=== PATIENT | male | born 1950 | race Caucasian/White ===

== ENCOUNTER 2020-08-22 05:19 | Observation (INO) ==
--- NOTE | 2020-07-20 15:33 | PAT Medication Instructions ---
Medication Instructions Date of Service July 20, 2020 Home Medications amlodipine [Norvasc] 2.5 mg PO QPM coQ10 (ubiquinol) 200 mg PO HS famotidine [Pepcid] 40 mg PO BID fish oil-dha-epa 1 cap PO BID glucos sul [id number] [Glucosamine Chondroitin] 2 cap PO QAM ibuprofen [Advil] 400 mg PO Q6H PRN lisinopril 40 mg PO HS multivitamin 1 tab PO QAM naproxen sodium [Aleve] 440 mg PO BID PRN pantoprazole [Protonix] 20 mg PO BID rosuvastatin [Crestor] 20 mg PO QPM turmeric root extract 500 mg PO QAM ASK your surgeon for instructions ibuprofen [Advil] 400 mg PO Q6H PRN naproxen sodium [Aleve] 440 mg PO BID PRN STOP taking 2 weeks before surgery (or as soon as possible if surgery is within 2 weeks) coQ10 (ubiquinol) 200 mg PO HS fish oil-dha-epa 1 cap PO BID glucos sul [id number] [Glucosamine Chondroitin] 2 cap PO QAM turmeric root extract 500 mg PO QAM DO NOT take the morning of surgery multivitamin 1 tab PO QAM Take morning of surgery With a small sip of water, OTHERWISE NOTHING TO EAT OR DRINK AFTER MIDNIGHT: famotidine [Pepcid] 40 mg PO BID pantoprazole [Protonix] 20 mg PO BID Take evening before surgery amlodipine [Norvasc] 2.5 mg PO QPM famotidine [Pepcid] 40 mg PO BID lisinopril 40 mg PO HS pantoprazole [Protonix] 20 mg PO BID rosuvastatin [Crestor] 20 mg PO QPM Other Notes If you have any questions please call us at [phone] or [phone] or [phone] or [phone]
--- NOTE | 2020-07-24 09:57 | Anesthesiology Consultation ---
Date of Service July 24, 2020 Assessment & Plan (1) Encounter for pre-operative examination: Chart Review Chart Review: Pending: Refer to Additional Notes / Consult section (pending surgeon ordered PCP clearance (07/20) and preop Covid testing ) and Patient seen in Pre Admission Testing Awaiting surgeon ordered PCP clearance done 07/20/20 Per PAT on 07/24/20, patient resides in [facility] Wears mask, uses good hand hygiene and socially distances. Went to visit son in [place]- returned to [place] 07/11/20. Also traveled to [place]- returned 07/01/20. No known Covid positive contacts or Covid related symptoms. Educated patient to follow up with surgeon's office regarding Covid testing. Will be >2 weeks since travel at time of preop Covid testing and surgery. Educated on importance of self quarantining, social distancing and wearing mask in public both for the patient and household contacts. Teaching & Discussion Pre-Anesthesia Teaching/Discussion Notes: Instructed NPO after midnight before surgery,except medications with 15 cc of water. Medication instructions provided according to the PAT guidelines. History Surgery Operation Date: 08/09/20 07:00 Proposed Procedures p Left Total Knee Arthroplasty - Jose Guillaume MD Height/Weight Height: 5 ft 8 in Weight: 89.5 kg Allergies Allergy/AdvReac Type Severity Reaction Status Date / Time No Known Allergies Allergy Verified 07/14/20 12:14 Medications Home Medications Medication Instructions Recorded Confirmed Last Taken amlodipine [Norvasc] 2.5 mg PO QPM 07/14/20 07/14/20 Unknown coQ10 (ubiquinol) 200 mg PO HS 07/14/20 07/14/20 Unknown famotidine [Pepcid] 40 mg PO BID 07/14/20 07/14/20 Unknown fish oil-dha-epa 1 cap PO BID 07/14/20 07/14/20 Unknown glucos sul [id number] 2 cap PO QAM 07/14/20 07/14/20 Unknown [Glucosamine Chondroitin] ibuprofen [Advil] 400 mg PO Q6H PRN 07/14/20 07/14/20 Unknown lisinopril 40 mg PO HS 07/14/20 07/14/20 Unknown multivitamin 1 tab PO QAM 07/14/20 07/14/20 Unknown naproxen sodium [Aleve] 440 mg PO BID PRN 07/14/20 07/14/20 Unknown pantoprazole [Protonix] 20 mg PO BID 07/14/20 07/14/20 Unknown rosuvastatin [Crestor] 20 mg PO QPM 07/14/20 07/14/20 Unknown turmeric root extract 500 mg PO QAM 07/14/20 07/14/20 Unknown Past Medical History Medical History GERD (gastroesophageal reflux disease) Well controlled and stable with meds Hyperlipidemia Hypertension Exercise / Class Metabolic Activity II 4-5 Yardwork/Stairs/Walk up hill (ONE FLIGHT OF STAIRS - NO CHEST PAIN OR SOB ) Past Surgical History Surgical History H/O hand surgery TRIGGER FINGER History of arthroscopy RIGHT History of cardiac cath 25 YRS AGO-NO BLOCKAGE FOUND-NORMAL VESSELS History of colonoscopy History of esophagogastroduodenoscopy (EGD) History of tonsillectomy Past Anesthesia History No Hx of Anesthesia Complications and No Family Hx of Anesthesia Complications History of PONV No Hx of PONV and No Hx of Motion Sickness Social History Smoking Status: Never smoker Do You Dip or Chew Tobacco: No Hx Alcohol Use: Yes Alcohol type: hard liquor alcohol intake frequency: 0-2 drinks per day (2-3 drinks/day) Hx Substance Use: No Review of Systems Patient denies chest pain, shortness of breath, dyspnea on exertion, cough, wheezing, palpitations. No hx of seizures, stroke, NE, apnea/snoring. No hx of blood clots or blood transfusions Physical Exam Vital Signs VITALS BP 164/72 (usually well controlled per patient) P 51 (chronic bradycardia- no symptoms) TEMP 97.8 SP02 98% RESP 16 Constitutional no acute distress ENMT Mouth: no TMJ clicking Thyromental Distance: > or= 3.5 Finger Breadths (4.0) Mallampati Class: IV Front bottom permanent bridge Cap on molar Neck + limited neck extension (mild ) Respiratory normal respiratory effort; no respiratory distress Auscultation: lungs clear to auscultation bilaterally; no wheezes Cardiovascular Rate/Rhythm: regular rate and regular rhythm Heart Sounds: no murmur Vessels: no carotid bruit Musculoskeletal Spine: no pain with cervical ROM Neurologic moves all extremities Psychiatric Orientation: alert Testing Laboratory Results 07/24/20 10:14 07/24/20 10:14 PT 10.7 Seconds (9.0-12.0) 07/24/20 10:14 INR 1.0 (0.9-1.1) 07/24/20 10:14 APTT 26.2 Seconds (21.0-31.0) 07/24/20 10:14 Urine Color Yellow 07/24/20 10:14 Urine Appearance Clear (Clear) 07/24/20 10:14 Urine pH 5.0 (4.5-7.5) 07/24/20 10:14 Ur Specific [place] 1.011 (1.000-1.030) 07/24/20 10:14 Urine Protein Negative (Negative) 07/24/20 10:14 Urine Glucose (UA) Negative (Negative) 07/24/20 10:14 Urine Ketones Negative (Negative) 07/24/20 10:14 Urine Nitrite Negative (Negative) 07/24/20 10:14 Ur Leukocyte Esterase Negative (Negative) 07/24/20 10:14 Blood Type O Positive 07/24/20 10:14 Antibody Screen NEGATIVE 07/24/20 10:14 Electrocardiogram Date: 07/24/20 Marked sinus bradycardia at 44 bpm. When compared to EKG from Sep 12, 2014- no significant change was found Chest X-Ray Date: 07/24/20 Findings: + NAD There is minimal linear atelectasis/scarring at the right lung base.
--- NOTE | 2020-07-24 10:33 | XRay Report ---
XR chest Pre-admission PA/Lat CLINICAL HISTORY: Preoperative chest COMPARISON STUDY: No previous studies for comparison. FINDINGS: The cardiac and mediastinal contours are normal. There is no evidence of focal pulmonary co nsolidation. There is no evidence of failure. No pleural effusions are visualized.[There is minimal l inear atelectasis/scarring at the right lung base. General changes are present within the dorsal spin e. IMPRESSION: No active disease in the chest. ACT 112: Negative or not required by law. Electronically signed by: Jon Storey M.D. 07/24/2020 10:32 AM
[2020-07-24 10:40] LABS: Basophils # (auto) 0.02 K/uL (0-0.2); Basophils % (auto) 0.4 %; Hematocrit (blood only) 41.2 % (42-52); Hemoglobin 14.2 g/dL (14.0-18.0); Immature Granulocytes # (auto) 0.02 K/uL (0.00-0.02); Immature Granulocytes % (auto) 0.4 %; Lymphocytes # (auto) 1.61 K/uL (1.2-3.4); Lymphocytes % (auto) 32.1 %; Mean Corpuscular Hemoglobin 31.9 pg (25-34); Mean Corpuscular Hgb Conc 34.5 g/dL (32-36); Mean Corpuscular Volume 92.6 fL (80-100); Mean Platelet Volume 11.3 fL (7.4-10.4); Monocytes # (auto) 0.39 K/uL (0.11-0.59); Monocytes % (auto) 7.8 %; Neutrophils # (auto) 2.87 K/uL (1.4-6.5); Neutrophils % (auto) 57.3 %; Platelet Count 159 K/uL (130-400); RDW Coefficient of Variation 12.5 % (11.5-14.5); RDW Standard Deviation 42.1 fL (36.4-46.3); Red Blood Count 4.45 M/uL (4.7-6.1); White Blood Count 5.01 K/uL (4.8-10.8)
[2020-07-24 10:45] LABS: Appearance Urine Clear (Clear); Bilirubin Urine Negative (Negative); Blood Urine Negative (Negative); Color Urine Yellow; Glucose Urine UA Negative (Negative); Ketones Urine Negative (Negative); Leukocyte Esterase Urine Negative (Negative); Nitrite Urine Negative (Negative); Protein Urine Negative (Negative); Specific Gravity Urine 1.011 (1.000-1.030); Urobilinogen Urine Negative (Negative)
[2020-07-24 10:47] LABS: BUN Creatinine Ratio 16.6 (10-20); Calcium 9.2 mg/dl (8.5-10.1); Creatinine Clr Calc Pharmacy 79.2 ml/min; Est GFR (African American) 95.4; Est GFR (Non-African American) 82.3; Potassium 4.3 mmol/L (3.5-5.1)
[2020-07-24 11:01] LABS: Partial Thromboplastin Ratio 0.9; Partial Thromboplastin Time 26.2 Seconds (21.0-31.0); Prothrombin Time 10.7 Seconds (9.0-12.0)
--- NOTE | 2020-07-24 17:06 | Electrocardiogram Report ---
Test Reason : Blood Pressure : / mmHG Vent. Rate : 044 BPM Atrial Rate : 044 BPM P-R Int : 192 ms QRS Dur : 092 ms QT Int : 440 ms P-R-T Axes : 059 062 031 degrees QTc Int : 376 ms Marked sinus bradycardia Abnormal ECG When compared with ECG of 12-SEP-2014 12:28, No significant change was found Confirmed by Sergei Elam ([id number]) on 07/24/2020 5:06:00 PM Referred By: Jose Guillaume Confirmed By:Timbo Elam
--- NOTE | 2020-07-25 12:13 | History & Physical Report ---
Date of Service July 25, 2020 Assessment & Plan (1) Left knee DJD: Postoperative prescriptions for Coumadin and Percocet will be provided at discharge from the hospital. Anticipate discharge to home with home health services. Preoperative lab work, EKG, and chest x-ray were ordered today. Preoperative COVID nasal screening was also ordered today. PDMP was virtual check and is not concerning. The patient already has access to a walker and cane. He has already seen his PCP for medical clearance. The patient is aware of the COVID-19 risks associated with surgery. He is currently asymptomatic of any COVID-19 symptoms. He has already quarantined himself since returning from [place]. Postoperative followup has already been made for August 24 for staple removal. History of Present Illness Chief Complaint: Left knee pain Primary Care Provider: Eliazar Ham This 70-year-old white male presents today for left knee pain present since January 2020. He is scheduled to undergo a left knee total knee arthroplasty on 08/09/2020. No specific injury that he can recall. Pain is worse with weightbearing. He is having difficulty with walking. There is night pain. He has difficulty finding a comfortable position to sleep. There is little pain with sitting. He has tried NSAIDs as well as cortisone injection without impro vement. X-ray and MRI have been obtained. He elects to proceed with surgical intervention in hopes of improving his discomfort. Allergies Allergy/AdvReac Type Severity Reaction Status Date / Time No Known Allergies Allergy Verified 07/14/20 12:14 Home Medications Home Medications Medication Instructions Recorded Confirmed Type amlodipine [Norvasc] 2.5 mg PO QPM 07/14/20 07/14/20 History coQ10 (ubiquinol) 200 mg PO HS 07/14/20 07/14/20 History famotidine [Pepcid] 40 mg PO BID 07/14/20 07/14/20 History fish oil-dha-epa 1 cap PO BID 07/14/20 07/14/20 History glucos sul [id number]-C-Mn 2 cap PO QAM 07/14/20 07/14/20 History [Glucosamine Chondroitin] ibuprofen [Advil] 400 mg PO Q6H PRN 07/14/20 07/14/20 History lisinopril 40 mg PO HS 07/14/20 07/14/20 History multivitamin 1 tab PO QAM 07/14/20 07/14/20 History naproxen sodium [Aleve] 440 mg PO BID PRN 07/14/20 07/14/20 History pantoprazole [Protonix] 20 mg PO BID 07/14/20 07/14/20 History rosuvastatin [Crestor] 20 mg PO QPM 07/14/20 07/14/20 History turmeric root extract 500 mg PO QAM 07/14/20 07/14/20 History Past Med/Surg History Medical History GERD (gastroesophageal reflux disease) Well controlled and stable with meds Hyperlipidemia Hypertension Surgical History H/O hand surgery TRIGGER FINGER History of arthroscopy RIGHT History of cardiac cath 25 YRS AGO-NO BLOCKAGE FOUND-NORMAL VESSELS History of colonoscopy History of esophagogastroduodenoscopy (EGD) History of tonsillectomy Family History Other Alzheimer disease COPD (chronic obstructive pulmonary disease) Heart disease Obesity Social History Smoking Status: Never smoker Second Hand Exposure: Yes (FATHER SMOKED); Do You Dip or Chew Tobacco: No; Hx Alcohol Use: Yes Alcohol type: hard liquor Hx Substance Use: No Preferred Language: Moldovan Communication Ability: Effective Hearing Ability: Normal Personal Care Aid Required: No Beliefs That Will Affect Care: None marital status: Current Living Situation: Spouse current occupational status: retired Other Information That Helps Us Care for You: No Feels Safe at Home: Yes Safety Concerns: Feels Safe At This Time Assistive Devices: Contacts and Glasses Assistive Devices Comment: WILL WEAR GLASSES Review of Systems Review of Systems: All systems reviewed & are unremarkable except as noted in HPI & below A total of 10 systems were reviewed. Physical Exam Physical Exam: Vitals: Height 173 cm, weight 88.9 kg, BMI 29.7, temperature 36.4 oral, BP 142/62, pulse 58, O2 sat 98% on room air. General: Well- developed, well-nourished, elderly white male in no acute distress. Sitting on a chair. Alert and oriented. Looks younger than his stated age. Skin: Warm and dry with good turgor. No rashes or lesions. No ecchymosis or erythema. No intraarticular effusion. HEENT: Normocephalic, atraumatic. Eyes: PERRLA, EOMI. Nares and oropharynx exams deferred due to COVID precautions. Heart: Bradycardic RRR, no MGR. Lungs: Clear to auscultation bilaterally, no crackles, rhonchi or wheezing, good air movement. Abdomen: Bowel sounds present x4, soft, nontender. No organomegaly. No masses. Musculoskeletal: Left knee evaluation reveals no intraarticular effusion. No redness or warmth. Full terminal extension. Flexion to greater than 110 degrees. Strength is 5/5 with good quad tone. He has no current medial or lateral joint line discomfort with palpation. No defect in the patellar tendon or quadriceps tendon. Ambulates with a slightly antalgic gait. Stable collateral ligaments. Neurologic: Gross sensation is intact across left leg by soft touch. Peripheral pulses are 2+. Results & Data Results & Data ([facility]) Diagnostic Findings Radiographic imaging previously obtained shows significant degenerative disease within the medial compartment. He has subchondral fracture with osteochondritis dissecans.
[~2020-08-22 05:19] MED LIST: LR 500ML BOLUS, THEN 15ML/HR IV SCH; LR 60ML/HR IV SCH; ROPIVACAINE 0.5% HCL/PF 150 MG, BUPIVACAINE 0.5% MPF 30 ML, EPINEPHrine 0.15 MG, Ketoro... INFIL SCH; TRANEXAMIC ACID 1,000 MG **IV Pre-op IV SCH; ceFAZolin 2000MG 2,000 MG/15 ML SYR IV SCH
[2020-08-22] MEDS ORDERED: LR 60ML/HR IV SCH (06:00)
[2020-08-22] MEDS ORDERED: LR 500ML BOLUS, THEN 15ML/HR IV SCH (06:00)
[2020-08-22] MEDS ORDERED: ceFAZolin 2000MG 2,000 MG/15 ML SYR IV SCH (06:00)
[2020-08-22] MEDS ORDERED: ROPIVACAINE 0.5% HCL/PF 150 MG, BUPIVACAINE 0.5% MPF 30 ML, EPINEPHrine 0.15 MG, Ketoro... INFIL SCH (06:00)
[2020-08-22] MEDS ORDERED: TRANEXAMIC ACID 1,000 MG **IV Pre-op IV SCH (06:00)
--- NOTE | 2020-08-22 06:28 | History & Physical Bridge Note ---
Date of Service August 22, 2020 History & Physical Bridge Note I have examined the patient, reviewed the History & Physical and in the interval since the performance of the History & Physical I have noted the following changes of clinical significance: consent verified/site verified/covid screen negative.no changes noted
[2020-08-22] MEDS ORDERED: ROPIVACAINE 0.5% 5 MG/ML 30 ML VIAL ONE (06:30)
[2020-08-22] MEDS ORDERED: BUPIVACAINE 0.5 % 5 MG/1 ML PF 10ML VIAL ONE (06:30)
[2020-08-22] MEDS ORDERED: ORTHO JOINT ANESTHETIC ONE (06:35)
[2020-08-22] MEDS ORDERED: PROPOFOL IV EMULSION 10 MG/ML 20 ML VIAL IV ONE ×2 (06:38→08:18)
[2020-08-22] MEDS ORDERED: LIDOCAINE HCL 2% 2 ML VIAL/AMP(20MG/ML) INFIL ONE (06:38)
[2020-08-22] MEDS ORDERED: MIDAZOLAM HCL 1 MG/ML 2ML VIAL ONE ×2 (06:39→07:29)
[2020-08-22] MEDS ORDERED: fentaNYL citrate 100 MCG/2 ML VIAL ONE (06:39)
[2020-08-22] MEDS ORDERED: ePHEDrine sulfate 50 MG/ML AMP IV PRN (07:00)
[2020-08-22] MEDS ORDERED: HYDROmorphone INJ 1 MG/ML SYRINGE IV PRN (07:00)
[2020-08-22] MEDS ORDERED: ONDANSETRON INJ 2 MG/ML 2 ML VIAL IV PRN ×2 (07:00→09:44)
[2020-08-22] MEDS ORDERED: ATROPINE SULFATE 0.1 MG/ML 10ML SYR IV PRN (07:00)
[2020-08-22] MEDS ORDERED: GLYCOPYRROLATE 0.2 MG/ML VIAL ONE (08:10)
--- NOTE | 2020-08-22 08:33 | Post Operative Brief Note ---
Immediate Post Op Note v1 Date of Surgery August 22, 2020 Pre & Post Diagnosis Operation Date: 08/22/20 07:00 Pre-Op Diagnosis: Left Knee Degenerative Joint Disease Post-Op Diagnosis: Left Knee Degenerative Joint Disease I identified the patient and participated in the time-out.: Yes Procedure Operation Date: 08/22/20 07:00 Actual Procedures p Left Total Knee Arthroplasty(Left) - Jose Guillaume MD Surgeon Jose Guillaume MD [facility] Estimated Blood Loss 25 Findings Consistent with Post-Op Diagnosis
--- NOTE | 2020-08-22 08:41 | Operative Report ---
Post Operative Report Pre & Post Diagnosis Operation Date: 08/22/20 07:00 Pre-Op Diagnosis: Left Knee Degenerative Joint Disease Post-Op Diagnosis: Left Knee Degenerative Joint Disease I identified the patient and participated in the time-out.: Yes Procedure Operation Date: 08/22/20 07:00 Actual Procedures p Left Total Knee Arthroplasty(Left) - Jose Guillaume MD Surgeon BE Guillaume MD Diversity Manager zoe Estimated Blood Loss 25 Findings Consistent with Post-Op Diagnosis Specimens see operative report Drains none Complications none Disposition Accompanied Patient To Recovery: Yes Disposition: Recovery Room Indications This 70-year-old white male presented to the office with complaints of persisting left knee pain. He had tried conservative care measures including activity modification, injection therapy, oral anti-inflammatories, and oral pain medication, without improvement. He elected to proceed with surgical intervention after being educated about potential risks and outcomes. Preoperative imaging was obtained. Description of Procedure Patient was administered a spinal anesthetic and then taken to the operating room where he was given sedation. He was prepped and draped in the usual sterile fashion. Please see Dr. Guillaume's operative report for specifics of the procedure. I was present for the entire case from initial patient positioning through final wound closure. Assistance was provided in tissue retraction, hemostasis, trial implant placement, final implant placement, and final wound closure. Patient was taken to the recovery room in satisfactory condition. I attest to the content of the Intraoperative Record and any orders documented therein. Any exceptions are noted below.
[2020-08-22] MEDS ORDERED: ePHEDrine sulfate 50 MG/ML SYR ONE (08:46)
--- NOTE | 2020-08-22 09:08 | XRay Report ---
LEFT KNEE 2 VIEWS History: Left total knee arthroplasty. Degenerative arthritis. Postop. FINDINGS: The patient is status post a left total knee arthroplasty. The hardware is intact. No fract ure or dislocation. Skin ghada are in place. IMPRESSION: Left total knee arthroplasty. No evidence for hardware complication. ACT 112: Negative or not required by law. Electronically signed by: Brett Hewitt M.D. 08/22/2020 9:07 AM
--- NOTE | 2020-08-22 09:13 | Operative Report (OR) ---
DATE OF OPERATION: 08/22/2020 SURGEON: Jose Guillaume MD. MEMBER SERVICES COORDINATOR: Carlos Willis PA-C. No resident or fellow available. 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 OPERATION PERFORMED: cemented left total knee replacement. PERIOPERATIVE SITUATION: Medically cleared male with intractable knee pain with physical exam, x-ray and MRI scan consistent with a very large osteonecrotic lesion with osteochondritis dissecans and secondary degenerative disease of medial compartment with disease degenerative of the trochlea of the left knee. At this point in time, options were discussed with him. He has failed conservative management and wanted to proceed with knee replacement. He understands the risks and consequences. Please see consent. DESCRIPTION OF PROCEDURE: The patient was appropriately identified, site verified, consent verified. Antibiotics confirmed as being given. The left lower extremity was prepped and draped in usual routine fashion and the tourniquet inflated to 300 mmHg after exsanguination of limb with a rubber Esmarch bandage for a total of 51 minutes. Midline exposure was utilized. Parapatellar arthrotomy performed. Synovectomy completed. Osteophytes resected. The knee flexed. Large lesions noted medially. Large lesion noted in the central trochlea. Distal femur then entered. Cruciates resected. Distal femur resected 12 mm, tibia subluxated, menisci resected. Proximal tibia resected 4 mm, the extension gap was excellent. Tibia was a size 4, femur was sized to a 4; with appropriate cutting block, anterior and posterior condylar and chamfer cuts made and the flexion gap checked, it was excellent. The box cut was then made and the size 4 fit well. The tibia was then broached and reamed to a size 4, 10 mm spacer offered excellent stability, full extension and good mid range stability. Patella tracked well. The patella was resected leaving 16 mm, 38 button trial was then seated and secured and then it fit and tracked well. The Orthomix was then injected all around the knee including posteriorly. The wound was then irrigated after all trial implants were removed with Betadine and Pulsavac and then the permanent cemented in position, tibia, femur, patella in that order. At 12 minutes, the tourniquet deflated. After 14 minutes, the knee flexed, no cement removal was required. Knee irrigated one final time and then the permanent liner seated, knee reduced and closed at 30-40 degrees of flexion with #2 Vicryl, 2-0 Vicryl and stainless steel clips. Appropriate dressing applied. The patient was transferred to recovery room in satisfactory condition having tolerated the procedure well. ESTIMATED BLOOD LOSS: 25 mL. Bone pathology pending on resections and DVT prophylaxis per protocol. I attest to the content of the Intraoperative Record and any orders documented therein. Any exceptions are noted below. MTDD
[2020-08-22] MEDS ORDERED: MAGNESIUM HYDROXIDE SUSP 30 ML UDC PO PRN (09:44)
[2020-08-22] MEDS ORDERED: NALOXONE HCL 0.4 MG/1 ML VIAL/CARP IV PRN (09:44)
[2020-08-22] MEDS ORDERED: TAMSULOSIN HCL 0.4 MG CAP PO PRN (09:44)
[2020-08-22] MEDS ORDERED: ALUMINUM/MAGNESIUM SUSP 30 ML UDC PO PRN (09:44)
[2020-08-22] MEDS ORDERED: HYDROmorphone INJ 0.5 MG/0.5 ML SYR IV PRN (09:44)
[2020-08-22] MEDS ORDERED: bisacodyL 10 MG SUPP PR PRN (09:44)
[2020-08-22] MEDS ORDERED: METOCLOPRAMIDE HCL INJ 5 MG/ML 2 ML VIAL IV PRN (09:44)
[2020-08-22] MEDS ORDERED: diphenhydrAMINE 50 MG/ML VIAL IV PRN (09:44)
[2020-08-22] MEDS ORDERED: SODIUM CHLORIDE 0.9% 1000ML 1,000 ML IV SCH (10:00)
[2020-08-22] MEDS: DOCUSATE SODIUM 100 MG CAP PO SCH ×2 (10:25→21:32)
[2020-08-22] MEDS: MULTIVITAMIN TAB PO SCH (10:25)
[2020-08-22] MEDS: PANTOprazole 40 MG TAB PO SCH ×2 (10:26→21:32)
[2020-08-22] MEDS: KETOROLAC 30 MG/ML VIAL IV SCH ×3 (10:26→22:41)
--- NOTE | 2020-08-22 10:48 | Anesthesiology Progress Note ---
Date of Service August 22, 2020 Anesthesia Post Procedure Vital Signs Vital Signs: Temp Pulse Pulse Resp BP BP Pulse Ox 08/22/20 10:45 36.6 C 52 L 16 154/74 H 95 08/22/20 10:14 36.6 C 52 L 16 147/64 H 97 08/22/20 09:47 36.8 C 57 L 17 147/66 H 97 08/22/20 09:30 53 L 18 142/63 H 96 08/22/20 09:20 36.4 C L 47 L 20 137/59 L 93 08/22/20 09:10 50 L 20 143/86 H 96 08/22/20 09:00 50 L 16 136/60 95 08/22/20 08:50 52 L 18 134/62 94 08/22/20 08:41 36.4 C L 63 20 123/73 94 08/22/20 06:28 51 L 20 164/77 H 98 08/22/20 05:51 36.4 C L 53 L 16 171/71 H 99 Pain Intensity Left Knee: Pain Intensity: 0 Transfer of Care Handoff Completed per policy Notes Mental Status: alert / awake / arousable Patient Amnestic to Procedure: Yes Nausea / Vomiting: adequately controlled Pain: adequately controlled Airway Patency, RR, SpO2: stable & adequate BP & HR: stable & adequate Hydration State: stable & adequate Neuraxial Anesthesia: was administered and sensory block is resolving Anesthetic Complications: no major complications apparent
--- NOTE | 2020-08-22 11:22 | Progress Notes ---
DATE: 08/22/2020 SUBJECTIVE: Status post left total knee replacement. The patient is doing well, ate well. Denies nausea, vomiting, chest pain, shortness of breath, fever or chills. OBJECTIVE: Vital signs are stable. He is afebrile. Postop x-rays look excellent. Wound dressing clean, dry and intact. The block is starting to wear off. He is getting some toe and ankle extension and flexion. Some slight quad contraction. ASSESSMENT: Doing well status post left total knee replacement. Mobilize when he wakes up from his spinal anesthesia, weakness in his legs and prepare for discharge tomorrow. Again postop x-rays. DICTATION ENDS HERE
--- NOTE | 2020-08-22 13:06 | Discharge Summary (DS) ---
DATE OF DISCHARGE: 08/23/2020. CHIEF COMPLAINT: Left knee pain. HISTORY OF PRESENT ILLNESS: Underwent elective left total knee replacement. Hospital course has been uneventful to date. Postop x-rays look excellent. PREADMISSION DIAGNOSES: Includes hypertension, gastroesophageal reflux disease, hypercholesterolemia, arthritis. PREADMISSION MEDICATIONS: Please see medication reconciliation sheet includes benazepril, pantoprazole, Crestor, amlodipine. PAST MEDICAL/SURGICAL HISTORY: As noted above including a trigger finger, colonoscopies, tonsillectomy. FAMILY HISTORY: Remarkable for COPD, heart disease, obesity and Alzheimer's disease. SOCIAL HISTORY: Reveals he does not smoke. He is retired, . REVIEW OF SYSTEMS: Reveals no chest pain, shortness of breath, fever, chills, nausea, vomiting or headache. Postop x-rays look excellent. ASSESSMENT: Doing well status post left total knee replacement. Continue with postop care pathway. Discharge tomorrow.
[2020-08-22] MEDS: ORTHO WARFARIN NOMOGRAM SCH (14:14)
[2020-08-22] MEDS: ceFAZolin 2000MG 2,000 MG/15 ML SYR IV SCH ×2 (14:23→22:41)
[2020-08-22] MEDS: ACETAMINOPHEN 500 MG TAB PO SCH ×2 (14:23→22:40)
[2020-08-22] MEDS ORDERED: TRANEXAMIC ACID / 0.7% NACL 1,000 MG/100 ML BAG IV SCH (15:00)
[2020-08-22] MEDS ORDERED: WARFARIN SOD 5 MG TAB PO ONE (16:00)
[2020-08-22] MEDS: FERROUS GLUCONATE 324 MG TAB PO SCH (17:35)
[2020-08-22] MEDS: ASCORBIC ACID 500 MG TAB PO SCH (17:35)
[2020-08-22] MEDS: oxyCODONE HCL IR 5 MG TAB (IMMEDIATE RELEASE) PO PRN ×2 (19:41→23:51)
[2020-08-22] MEDS ORDERED: SENNA 8.6 MG TAB PO SCH (21:00)
[2020-08-22] MEDS ORDERED: amLODIPine BESYLATE 5 MG TAB PO SCH (21:00)
[2020-08-22] MEDS ORDERED: ROSUVASTATIN CALCIUM 20 MG TAB PO SCH (21:00)
[2020-08-22] MEDS ORDERED: lisinopril 40 MG TAB PO SCH (21:00)
[2020-08-23] MEDS: KETOROLAC 30 MG/ML VIAL IV SCH (04:16)
[2020-08-23] MEDS: ACETAMINOPHEN 500 MG TAB PO SCH (06:07)
[2020-08-23] MEDS: oxyCODONE HCL IR 5 MG TAB (IMMEDIATE RELEASE) PO PRN ×2 (06:08→11:25)
[2020-08-23 06:38] LABS: Hematocrit (blood only) 32.1 % (42-52); Mean Corpuscular Hemoglobin 31.7 pg (25-34); Mean Corpuscular Hgb Conc 34.3 g/dL (32-36); Mean Corpuscular Volume 92.5 fL (80-100); Mean Platelet Volume 11.3 fL (7.4-10.4); Platelet Count 158 K/uL (130-400); RDW Coefficient of Variation 12.7 % (11.5-14.5); RDW Standard Deviation 43.1 fL (36.4-46.3); Red Blood Count 3.47 M/uL (4.7-6.1); White Blood Count 8.81 K/uL (4.8-10.8)
[2020-08-23 06:41] LABS: Prothrombin Time 10.9 Seconds (9.0-12.0)
[2020-08-23 07:09] LABS: Creatinine Clr Calc Pharmacy 78.9 ml/min; Est GFR (African American) 95.4; Est GFR (Non-African American) 82.3; Potassium 4.1 mmol/L (3.5-5.1)
[2020-08-23] MEDS: MULTIVITAMIN TAB PO SCH (07:32)
[2020-08-23] MEDS: FERROUS GLUCONATE 324 MG TAB PO SCH (07:32)
[2020-08-23] MEDS: ASCORBIC ACID 500 MG TAB PO SCH (07:32)
[2020-08-23] MEDS: DOCUSATE SODIUM 100 MG CAP PO SCH (07:32)
[2020-08-23] MEDS: PANTOprazole 40 MG TAB PO SCH (07:32)
[2020-08-23] MEDS ORDERED: dexAMETHasone 10 MG in SYRINGE 0 ML IV SCH (08:00)
--- NOTE | 2020-08-23 08:07 | Progress Notes ---
DATE: 08/23/2020 SUBJECTIVE Postop day #1 status post left total knee replacement. The patient is sitting up, reading, has no issues with pain. Denies chest pain, shortness of breath, fever, chills, nausea, vomiting or headache. OBJECTIVE: Vital signs are stable. He is afebrile. Wound is clean, dry and intact. Femoral sciatic nerve function is normal. Calves nontender A.m. labs are pending. ASSESSMENT: Doing well. Discharge to home today. Coumadin dose per nomogram. Dressing change prior to. DICTATION ENDS HERE
--- NOTE | 2020-08-23 09:27 | Orthopedic Progress Note ---
Date of Service August 23, 2020 Assessment & Plan (1) Left knee DJD: POD 1- Left total knee arthroplasty May be OOB - WBAT LLE; use walker to assist with ambulation PT/OT today continue regular diet as ordered Coumadin as instructed for DVT prophylaxis. Ice PRN swelling/pain Dressings changed today Will discuss findings with Dr. Guillaume. Pain medication as prescribed. All questions answered Follow up as out patient as scheduled Will discuss findings with Dr. Guillaume. Admission and Anticipated Discharge Date Admission Date: August 22, 2020 Subjective Doing well, no complaints of pain. Tolerating regular diet. Seen by Dr. Guillaume earlier today. Physical Exam Physical Exam: Incision left knee clean, dry and intact. No effusion. No active drainage. Dressings applied. Calf supple and nontender. Distal pulses 1+, sensation normal. Able to actively SLR LLE. No distal edema. Results & Data ([facility]) Vital Signs (Past 12 Hours) Vital Signs Temp Pulse Resp BP Pulse Ox 08/23/20 07:37 36.9 C 51 L 16 126/66 97 08/23/20 04:18 36.8 C 55 L 15 113/61 99 08/22/20 23:55 36.3 C L 50 L 16 158/83 H 96 08/22/20 21:33 36.4 C L 53 L 16 131/63 96 Laboratory Results 08/23/20 08/23/20 08/23/20 Range/Units 06:20 06:20 06:20 WBC 8.81 (4.8-10.8) K/uL RBC 3.47 L (4.7-6.1) M/uL Hgb 11.0 L (14.0-18.0) g/dL Hct 32.1 L (42-52) % MCV 92.5 (80-100) fL MCH 31.7 (25-34) pg MCHC 34.3 (32-36) g/dL RDW Std Deviation 43.1 (36.4-46.3) fL RDW Coeff of Aj 12.7 (11.5-14.5) % Plt Count 158 (130-400) K/uL MPV 11.3 H (7.4-10.4) fL PT 10.9 (9.0-12.0) Seconds INR 1.0 (0.9-1.1) Sodium 137 (136-145) mmol/L Potassium 4.1 (3.5-5.1) mmol/L Chloride 107 (98-107) mmol/L Carbon Dioxide 25 (21-32) mmol/L Anion Gap 5.0 (3-11) BUN 21 H (7-18) mg/dl Creatinine 0.93 (0.6-1.4) mg/dl Est Cr Clr Drug Dosing 78.9 ml/min Est GFR ( Amer) 95.4 Est GFR (Non-Af Amer) 82.3 BUN/Creatinine Ratio 22.0 H (10-20) Glucose 129 H (70-99) mg/dl Calcium 8.0 L (8.5-10.1) mg/dl
[2020-08-23] MEDS: ORTHO WARFARIN NOMOGRAM SCH (11:33)
[2020-08-23] MEDS ORDERED: WARFARIN SOD 5 MG TAB PO SCH (11:45)
== END 2020-08-23 12:45 | disposition home health service (06) ==
LOC: 3E 05:19 → ASU 05:19

== ENCOUNTER 2024-06-18 09:58 | Observation (INO) ==
[2024-06-18] MEDS: SODIUM CHLORIDE 0.9% 500 ML IV ONE (10:29)
[2024-06-18 10:39] LABS: Basophils # (auto) 0.03 K/uL (0.00-0.20); Basophils % (auto) 0.6 %; Eosinophils # (auto) 0.08 K/uL (0.00-0.50); Eosinophils % (auto) 1.7 %; Hematocrit (blood only) 38.5 % (42.0-52.0); Hemoglobin 13.7 g/dl (14.0-18.0); Immature Granulocytes # (auto) 0.01 K/uL (0.01-0.20); Immature Granulocytes % (auto) 0.2 %; Lymphocytes # (auto) 0.85 K/uL (1.20-3.40); Lymphocytes % (auto) 17.6 %; Mean Corpuscular Hemoglobin 32.2 pg (25.0-34.0); Mean Corpuscular Hgb Conc 35.6 g/dL (32.0-36.0); Mean Corpuscular Volume 90.4 fL (80.0-100.0); Mean Platelet Volume 11.7 fL (9.4-12.4); Monocytes # (auto) 0.53 K/uL (0.11-0.59); Neutrophils # (auto) 3.34 K/uL (1.40-6.50); Neutrophils % (auto) 68.9 %; Platelet Count 157 K/uL (130-400); RDW Coefficient of Variation 12.6 % (11.5-14.5); RDW Standard Deviation 41.2 fL (36.4-46.3); Red Blood Count 4.26 M/uL (4.70-6.10); White Blood Count 4.84 K/ul (4.8-10.8)
[2024-06-18 10:57] LABS: Albumin Level 4.7 gm/dl (3.4-5.0); BUN Creatinine Ratio 23.3 (10-20); Bilirubin,Total 0.9 mg/dl (0.2-1.0); Calcium 9.4 mg/dl (8.6-10.3); Creatinine Clr Calc Pharmacy 69.7 ml/min; Est GFR (African American) 97.2 ml/min; Est GFR (Non-African American) 83.8 ml/min; Globulin 2.3 gm/dl (2.5-4.0); Magnesium 2.2 mg/dl (1.7-2.4); Phosphorus 3.4 mg/dl (2.5-4.9); Potassium 4.4 mmol/L (3.5-5.1)
--- NOTE | 2024-06-18 11:02 | XRay Report ---
XR chest 1V portable CLINICAL HISTORY: Chest pain, nonspecific COMPARISON STUDY: Chest radiograph July 30, 2021. Chest CT October 05, 2021. FINDINGS: Lung volumes are normal. Lungs are clear. There is no pneumothorax or pleural effusion. Car diac size is normal. Mediastinal contours are normal. There is no evidence for pulmonary edema. IMPRESSION: No acute cardiopulmonary findings. ACT 112: Negative or not required by law. Electronically signed by: Julio Walters M.D. 06/18/2024 11:00 AM
[2024-06-18 11:03] LABS: Troponin I High Sensitivity 7.4 pg/ml (0-20)
[2024-06-18 11:11] LABS: Thyroid Stimulating Hormone 2.628 uIu/ml (0.300-4.500)
--- NOTE | 2024-06-18 11:31 | Emergency Department Note ---
Impression & Plan Pre-syncope, Sinus bradycardia, First degree AV block ED Provider Note NAME: KEELEY ANDINO AGE: 73 SEX: M : 1950 ARRIVES VIA: Walk-In INFORMANT: Patient ED PROVIDER(S): Salbador Giron MD CHIEF COMPLAINT: Slow heart rate, dizziness, syncope. PLAN: Disposition: Admit MEDICAL DECISION MAKING: The patient is a pleasant 73-year-old gentleman with a past medical history of hypertension, GERD who presents to the emergency department via walk-in, accompanied by his for evaluation of ongoing fatigue and frequent episodes of dizziness and imbalance that fluctuate which became worse over the past 2 weeks. Patient reports 2 nights ago he got up to take out their dog and passed out after standing up falling into their glass door cracking the glass and suffering minor cuts to his scalp where he reports going to express care and had the lacerations repaired with adhesive. However, the patient reports today due to concern that his symptoms are worsening and correlates them with his heart rate which has been known to be low in the 40s-50s for years but without symptoms and now is concerned that his heart rate trend has gone even lower to the 30s-40s on his smart watch and feels as though his symptoms may correlate. He denies any fevers, chills, cough congestion, GI or symptoms. Of note, the patient did arrive to emergency department during time of high volume, acuity and prolonged emergency department waiting times. On evaluation the patient is no acute distress, afebrile with heart in the upper 30s-40s and sinus bradycardia without high-grade AV block. Vital signs are otherwise stable. Heart rate does increase from supine to sitting. EKG demonstrates sinus bradycardia without overt acute ischemia. CXR negative for acute cardiopulmonary process per my personal preliminary review/interpretation. WBC and platelet within normal limits. H/H approximate department values. Chemistry without metabolic acidosis. BUN/creatinine is 23, consistent with patient's clinically dry appearance. LFTs are unremarkable. High styptic troponin is 7.4, within normal limits. Lipase is not elevated. TSH within normal limits. Lyme screen was negative. CT of the head and CT of the head neck were performed were negative for ICH, ischemia or severe narrowing occlusion of large vessels. Findings were reviewed with the patient and his at the bedside. They did agree with plan for admission for further evaluation and management. Case was discussed with Dr. Galvan [facility] hospitalist, who will evaluate the patient for admission. Further management per admitting team. Triage Nursing notes reviewed and agree them. Prior/external medical records reviewed Vital Signs: reviewed Differential diagnosis: Vasovagal event, dehydration, infection, hypoglycemia, electrolyte abnormalities, cardiac sources, intracerebral event, pulmonary embolism, seizure, toxicologic, neurologic, as well as other pathologies. ER treatment provided: See below. Diagnostics interpreted by me: ECG: Sinus bradycardia, 40 bpm, no ectopy, first-degree block, LVH, no overt ST elevation or depression, QTc 381, QTc 96., Similar to July 2021. Cardiac Monitoring: An order for continuous cardiac monitoring was placed and demonstrated Sinus bradycardia, 40 bpm, no ectopy. Laboratory studies: See below Imaging studies: See below Consultation(s): Case was discussed with Dr. Galvan, [facility] [place] [facility] hospitalist, who will evaluate the patient for admission. HPI: The patient is a pleasant 73-year-old gentleman with a past medical history of hypertension, GERD who presents to the emergency department via walk-in, accompanied by his for evaluation of ongoing fatigue and frequent episodes of dizziness and imbalance that fluctuate which became worse over the past 2 weeks. Patient reports 2 nights ago he got up to take out their dog and passed out after standing up falling into their glass door cracking the glass and suffering minor cuts to his scalp where he reports going to express care and had the lacerations repaired with adhesive. However, the patient reports today due to concern that his symptoms are worsening and correlates them with his heart rate which has been known to be low in the 40s-50s for years but without symptoms and now is concerned that his heart rate trend has gone even lower to the 30s-40s on his smart watch and feels as though his symptoms may correlate. He denies any fevers, chills, cough congestion, GI or symptoms. ROS: See above HPI for pertinent positives & negatives. A total of 10 systems reviewed and were otherwise negative. VITALS:See Below PHYSICAL EXAMINATION: GENERAL: Awake, alert, well-appearing, in no distress HENT: Normocephalic, atraumatic. Oropharynx with dry mucous membranes and otherwise unremarkable. . EYES: Normal conjunctiva. Sclera non-icteric. EOMI. No nystamgus. PEARRL. NECK: Supple. No nuchal rigidity. FROM. No JVD. RESPIRATORY: Clear to auscultation. CARDIAC: Bradycardic rate, normal rhythm. Extremities warm and well perfused. Pulses equal. ABDOMEN: Soft, non-distended. No tenderness to palpation. No rebound or guarding. No masses. MUSCULOSKELETAL: Chest examination reveals no tenderness. The back is symmetrical on inspection without obvious abnormality. There is no CVA tenderness to palpation. No joint edema. LOWER EXTREMITIES: Calves are equal size bilaterally and non-tender. No edema. No discoloration. NEURO: Normal sensorium. No sensory or motor deficits noted. 5/5 strength and SILT x 4 extremities. Cerebellar function intact including [id number], alternating palms, [id number]. SKIN: No rash or jaundice noted. Salbador Giron MD Past Med/Surg History Problem List (Updated 06/20/24 @ 19:38 by Salbador Giron MD) First degree AV block (Acute) Scalp laceration Ascending aortic aneurysm Symptomatic sinus bradycardia Sinus bradycardia (Acute) Pre-syncope (Acute) Right knee DJD Encounter for pre-operative examination Laceration of thumb (Acute) Left knee DJD Medical History Abdominal aortic aneurysm Depression Osteoarthritis GERD (gastroesophageal reflux disease) Hypertension Hyperlipidemia Surgical History History of total knee replacement H/O hand surgery History of arthroscopy History of tonsillectomy History of esophagogastroduodenoscopy (EGD) History of colonoscopy History of cardiac cath Family History Other Alzheimer disease COPD (chronic obstructive pulmonary disease) Heart disease Obesity Social History Smoking Status: Never smoker Second Hand Exposure: Yes ( A CHILD); Do You Dip or Chew Tobacco: No; Hx Alcohol Use: Yes Alcohol type: hard liquor Hx Substance Use: No Preferred Language: Yemeni Communication Ability: Effective Hearing Ability: Normal [employer] Required: No Beliefs That Will Affect Care: None marital status: Current Living Situation: Spouse current occupational status: retired Feels Safe at Home: Yes Safety Concerns: Feels Safe At This Time Assistive Devices: Glasses Allergies Allergies Allergy/AdvReac Type Severity Reaction Status Date / Time No Known Allergies Allergy Verified 06/17/24 11:34 Home Meds Home Medications Medication Instructions Recorded Confirmed amlodipine 2.5 mg tablet (Norvasc) 5 mg PO QPM 07/14/20 06/18/24 famotidine 40 mg tablet (Pepcid) 40 mg PO BID 07/14/20 06/18/24 lisinopril 40 mg tablet 20 mg PO HS 07/14/20 06/18/24 multivitamin 1 tab PO QAM 07/14/20 06/18/24 pantoprazole 20 mg tablet,delayed 20 mg PO QAM 07/14/20 06/18/24 release (Protonix) rosuvastatin 20 mg tablet (Crestor) 40 mg PO QPM 07/14/20 06/18/24 ascorbic acid (vitamin C) 1,000 mg 1 g PO HS 07/23/21 06/18/24 tablet (Vitamin C) cholecalciferol (vitamin D3) 125 125 mcg PO QAM 07/23/21 06/18/24 mcg (5,000 unit) tablet (Vitamin D3) coQ10 (ubiquinol) 200 mg capsule 200 mg PO QPM 07/23/21 06/18/24 vitamin B complex 1 cap PO QAM 07/23/21 06/18/24 zinc 50 mg tablet 50 mg PO QAM 07/23/21 06/18/24 aspirin 81 mg tablet,delayed 81 mg PO QAM 06/17/24 06/18/24 release (Adult Aspirin Regimen) Previous Rx's Medication Instructions Recorded amoxicillin 875 mg-potassium 1 tab PO BID 5 days #10 tabs 06/17/24 clavulanate 125 mg tablet Results & Data (ED) Vital Signs Vital Signs - 24 hr 06/18/24 10:02 06/18/24 10:25 06/18/24 10:25 Temperature 36.0 C L Temperature Source Temporal Artery Scan Pulse Rate 45 L Pulse Rate [Left Finger] Pulse Rate from SpO2 Sensor Pulse Rhythm [Left Finger] Pulse Strength [Left Finger] Respiratory Rate 20 Respiratory Effort / Characteristics Non-Labored Spontaneous Respiratory Depth Normal Respiratory Pattern Blood Pressure 144/75 H Blood Pressure [Right Arm] Blood Pressure Mean 98 Blood Pressure Mean [Right Arm] Blood Pressure Position [Right Arm] Pulse Oximetry 98 97 Oxygen Delivery Method Room Air Room Air Room Air Oxygen Flow Rate 0 Sepsis Recent Fever Within 48 Hours No Sepsis New/Unexplained Change in Mental Status N/A Sepsis Action Taken by Nursing No Action Required Oxygen Flow Rate - Titration 97 06/18/24 10:27 06/18/24 10:27 06/18/24 10:30 Temperature Temperature Source Pulse Rate 39 L 40 L Pulse Rate [Left Finger] Pulse Rate from SpO2 Sensor 40 L Pulse Rhythm [Left Finger] Pulse Strength [Left Finger] Respiratory Rate 15 Respiratory Effort / Characteristics Respiratory Depth Respiratory Pattern Blood Pressure 136/64 Blood Pressure [Right Arm] Blood Pressure Mean 84 Blood Pressure Mean [Right Arm] Blood Pressure Position [Right Arm] Pulse Oximetry 97 Oxygen Delivery Method Oxygen Flow Rate Sepsis Recent Fever Within 48 Hours Sepsis New/Unexplained Change in Mental Status Sepsis Action Taken by Nursing Oxygen Flow Rate - Titration 06/18/24 10:30 06/18/24 10:30 06/18/24 10:45 Temperature Temperature Source Pulse Rate 40 L Pulse Rate [Left Finger] Pulse Rate from SpO2 Sensor 40 L Pulse Rhythm [Left Finger] Pulse Strength [Left Finger] Respiratory Rate 16 Respiratory Effort / Characteristics Respiratory Depth Respiratory Pattern Blood Pressure 136/64 133/68 Blood Pressure [Right Arm] Blood Pressure Mean 84 112 Blood Pressure Mean [Right Arm] Blood Pressure Position [Right Arm] Pulse Oximetry 96 Oxygen Delivery Method Oxygen Flow Rate Sepsis Recent Fever Within 48 Hours Sepsis New/Unexplained Change in Mental Status Sepsis Action Taken by Nursing Oxygen Flow Rate - Titration 06/18/24 10:45 06/18/24 10:45 06/18/24 10:45 Temperature Temperature Source Pulse Rate 43 L Pulse Rate [Left Finger] Pulse Rate from SpO2 Sensor 44 L Pulse Rhythm [Left Finger] Pulse Strength [Left Finger] Respiratory Rate 14 Respiratory Effort / Characteristics Respiratory Depth Respiratory Pattern Blood Pressure 133/68 133/68 Blood Pressure [Right Arm] Blood Pressure Mean 112 112 Blood Pressure Mean [Right Arm] Blood Pressure Position [Right Arm] Pulse Oximetry 97 Oxygen Delivery Method Oxygen Flow Rate Sepsis Recent Fever Within 48 Hours Sepsis New/Unexplained Change in Mental Status Sepsis Action Taken by Nursing Oxygen Flow Rate - Titration 06/18/24 11:00 06/18/24 11:03 06/18/24 11:06 Temperature Temperature Source Pulse Rate 47 L 43 L Pulse Rate [Left Finger] Pulse Rate from SpO2 Sensor 43 L Pulse Rhythm [Left Finger] Pulse Strength [Left Finger] Respiratory Rate 15 23 Respiratory Effort / Characteristics Respiratory Depth Respiratory Pattern Blood Pressure 146/69 H Blood Pressure [Right Arm] Blood Pressure Mean 97 Blood Pressure Mean [Right Arm] Blood Pressure Position [Right Arm] Pulse Oximetry 98 Oxygen Delivery Method Oxygen Flow Rate Sepsis Recent Fever Within 48 Hours Sepsis New/Unexplained Change in Mental Status Sepsis Action Taken by Nursing Oxygen Flow Rate - Titration 06/18/24 11:30 06/18/24 11:57 06/18/24 11:58 Temperature Temperature Source Pulse Rate 80 49 L Pulse Rate [Left Finger] Pulse Rate from SpO2 Sensor Pulse Rhythm [Left Finger] Pulse Strength [Left Finger] Respiratory Rate 16 16 Respiratory Effort / Characteristics Respiratory Depth Respiratory Pattern Blood Pressure 140/71 Blood Pressure [Right Arm] Blood Pressure Mean 99 Blood Pressure Mean [Right Arm] Blood Pressure Position [Right Arm] Pulse Oximetry Oxygen Delivery Method Oxygen Flow Rate Sepsis Recent Fever Within 48 Hours Sepsis New/Unexplained Change in Mental Status Sepsis Action Taken by Nursing Oxygen Flow Rate - Titration 06/18/24 11:58 06/18/24 12:02 06/18/24 12:02 Temperature Temperature Source Pulse Rate Pulse Rate [Left Finger] Pulse Rate from SpO2 Sensor Pulse Rhythm [Left Finger] Pulse Strength [Left Finger] Respiratory Rate Respiratory Effort / Characteristics Respiratory Depth Respiratory Pattern Blood Pressure 140/71 143/89 H 143/89 H Blood Pressure [Right Arm] Blood Pressure Mean 99 121 121 Blood Pressure Mean [Right Arm] Blood Pressure Position [Right Arm] Pulse Oximetry Oxygen Delivery Method Oxygen Flow Rate Sepsis Recent Fever Within 48 Hours Sepsis New/Unexplained Change in Mental Status Sepsis Action Taken by Nursing Oxygen Flow Rate - Titration 06/18/24 12:03 06/18/24 12:04 06/18/24 12:30 Temperature Temperature Source Pulse Rate 45 L 42 L Pulse Rate [Left Finger] 45 L Pulse Rate from SpO2 Sensor 44 L 42 L Pulse Rhythm [Left Finger] Regular Pulse Strength [Left Finger] Normal Respiratory Rate 17 20 16 Respiratory Effort / Characteristics Non-Labored Spontaneous Respiratory Depth Normal Respiratory Pattern Regular Blood Pressure 134/69 Blood Pressure [Right Arm] 143/89 H Blood Pressure Mean 90 Blood Pressure Mean [Right Arm] 107 Blood Pressure Position [Right Arm] Sitting Pulse Oximetry 99 98 98 Oxygen Delivery Method Room Air Oxygen Flow Rate Sepsis Recent Fever Within 48 Hours Sepsis New/Unexplained Change in Mental Status Sepsis Action Taken by Nursing Oxygen Flow Rate - Titration 06/18/24 13:06 06/18/24 13:30 06/18/24 14:00 Temperature Temperature Source Pulse Rate 41 L 41 L 45 L Pulse Rate [Left Finger] Pulse Rate from SpO2 Sensor 42 L Pulse Rhythm [Left Finger] Pulse Strength [Left Finger] Respiratory Rate 15 18 18 Respiratory Effort / Characteristics Respiratory Depth Respiratory Pattern Blood Pressure 118/67 134/67 125/62 Blood Pressure [Right Arm] Blood Pressure Mean 84 90 98 Blood Pressure Mean [Right Arm] Blood Pressure Position [Right Arm] Pulse Oximetry 97 96 98 Oxygen Delivery Method Oxygen Flow Rate Sepsis Recent Fever Within 48 Hours Sepsis New/Unexplained Change in Mental Status Sepsis Action Taken by Nursing Oxygen Flow Rate - Titration 06/18/24 14:25 06/18/24 14:33 06/18/24 15:39 Temperature Temperature Source Pulse Rate 36 L 42 L 41 L Pulse Rate [Left Finger] Pulse Rate from SpO2 Sensor 42 L 42 L Pulse Rhythm [Left Finger] Pulse Strength [Left Finger] Respiratory Rate 14 15 Respiratory Effort / Characteristics Respiratory Depth Respiratory Pattern Blood Pressure 127/68 Blood Pressure [Right Arm] Blood Pressure Mean 87 Blood Pressure Mean [Right Arm] Blood Pressure Position [Right Arm] Pulse Oximetry 96 98 Oxygen Delivery Method Oxygen Flow Rate Sepsis Recent Fever Within 48 Hours Sepsis New/Unexplained Change in Mental Status Sepsis Action Taken by Nursing Oxygen Flow Rate - Titration 06/18/24 16:15 Temperature Temperature Source Pulse Rate 54 L Pulse Rate [Left Finger] Pulse Rate from SpO2 Sensor 45 L Pulse Rhythm [Left Finger] Pulse Strength [Left Finger] Respiratory Rate 15 Respiratory Effort / Characteristics Respiratory Depth Respiratory Pattern Blood Pressure Blood Pressure [Right Arm] Blood Pressure Mean Blood Pressure Mean [Right Arm] Blood Pressure Position [Right Arm] Pulse Oximetry 96 Oxygen Delivery Method Oxygen Flow Rate Sepsis Recent Fever Within 48 Hours Sepsis New/Unexplained Change in Mental Status Sepsis Action Taken by Nursing Oxygen Flow Rate - Titration Laboratory Data Attestation: I reviewed the patient's lab results. 06/20/24 06:16 06/20/24 06:16 Lab Results 06/18/24 Range/Units 10:20 WBC 4.84 (4.8-10.8) K/ul RBC 4.26 L (4.70-6.10) M/uL Hgb 13.7 L (14.0-18.0) g/dl Hct 38.5 L (42.0-52.0) % MCV 90.4 (80.0-100.0) fL MCH 32.2 (25.0-34.0) pg MCHC 35.6 (32.0-36.0) g/dL RDW Std Deviation 41.2 (36.4-46.3) fL RDW Coeff of Aj 12.6 (11.5-14.5) % Plt Count 157 (130-400) K/uL MPV 11.7 (9.4-12.4) fL Immature Gran % (Auto) 0.2 % Neut % (Auto) 68.9 % Lymph % (Auto) 17.6 % Johnston % (Auto) 11.0 % Eos % (Auto) 1.7 % Baso % (Auto) 0.6 % Neut # (Auto) 3.34 (1.40-6.50) K/uL Lymph # (Auto) 0.85 L (1.20-3.40) K/uL Johnston # (Auto) 0.53 (0.11-0.59) K/uL Eos # (Auto) 0.08 (0.00-0.50) K/uL Baso # (Auto) 0.03 (0.00-0.20) K/uL Immature Gran # (Auto) 0.01 (0.01-0.20) K/uL Sodium 136 (136-145) mmol/L Potassium 4.4 (3.5-5.1) mmol/L Chloride 102 (98-107) mmol/L Carbon Dioxide 29 (21-32) mmol/L Anion Gap 5 (3-11) BUN 21 (6-23) mg/dl Creatinine 0.90 (0.6-1.4) mg/dl Est Cr Clr Drug Dosing 69.7 ml/min Est GFR ( Amer) 97.2 ml/min Est GFR (Non-Af Amer) 83.8 ml/min BUN/Creatinine Ratio 23.3 H (10-20) Glucose 123 H (70-99(Fasting)) mg/dl Calcium 9.4 (8.6-10.3) mg/dl Phosphorus 3.4 (2.5-4.9) mg/dl Magnesium 2.2 (1.7-2.4) mg/dl Total Bilirubin 0.9 (0.2-1.0) mg/dl AST 29 (13-39) U/L ALT 34 (7-52) U/L Alkaline Phosphatase 52 (34-104) U/L Troponin I High Sens 7.4 (0-20) pg/ml Total Protein 7.0 (6.0-8.3) gm/dl Albumin 4.7 (3.4-5.0) gm/dl Globulin 2.3 L (2.5-4.0) gm/dl Albumin/Globulin Ratio 2.0 (0.9-2) Lipase 24 (11-82) U/L TSH 2.628 (0.300-4.500) uIu/ml Lyme Disease Screen Negative (Negative) Administered Medications Amlodipine Besylate (Amlodipine Besylate 5 Mg Tab) 5 mg PO QPM [facility] Stop: 07/18/24 20:59 Last Admin: 06/19/24 20:31 Dose: 5 mg Documented By: Admin: 06/18/24 20:40 Dose: 5 mg Documented By: ELIAZAR Amoxicillin/Clavulanate Potassium (Amoxicillin/Clavulanate 875 Mg Tab) 1 tab PO BID [facility]; Protocol Stop: 06/25/24 20:59 Last Admin: 06/20/24 08:37 Dose: 1 tab Documented By: Admin: 06/19/24 20:31 Dose: 1 tab Documented By: Admin: 06/19/24 09:00 Dose: 1 tab Documented By: Admin: 06/18/24 20:38 Dose: 1 tab Documented By: ELIAZAR Aspirin (Aspirin 81 Mg Ectab) 81 mg PO QAM [facility] Stop: 07/19/24 08:59 Last Admin: 06/20/24 08:38 Dose: 81 mg Documented By: Admin: 06/19/24 09:00 Dose: 81 mg Documented By: AML Enoxaparin Sodium (Enoxaparin Inj 40 Mg/0.4 Ml Syr) 40 mg SQ Q24H [facility] Stop: 07/18/24 20:59 Last Admin: 06/19/24 20:29 Dose: Not Given Documented By: Admin: 06/18/24 20:37 Dose: Not Given Documented By: ELIAZAR Famotidine (Famotidine 40 Mg Tablet) 40 mg PO BID [facility] Stop: 07/18/24 20:59 Last Admin: 06/20/24 08:38 Dose: 40 mg Documented By: Admin: 08/31/24 20:30 Dose: 40 mg Documented By: Admin: 06/19/24 09:00 Dose: 40 mg Documented By: Admin: 06/18/24 20:38 Dose: 40 mg Documented By: ELIAZAR Lisinopril (Lisinopril 20 Mg Tab) 20 mg PO [facility] Stop: 07/18/24 20:59 Last Admin: 06/19/24 20:30 Dose: 20 mg Documented By: Admin: 06/18/24 20:38 Dose: 20 mg Documented By: ELIAZAR Multivitamins (Multivitamin Tab) 1 tab PO QAM [facility] Stop: 07/19/24 08:59 Last Admin: 06/20/24 08:38 Dose: 1 tab Documented By: Admin: 06/19/24 09:01 Dose: 1 tab Documented By: MIKE Pantoprazole Sodium (Pantoprazole 40 Mg Tab) [facility] [place] [facility] [place]: 07/19/24 08:59 Last Admin: 06/20/24 08:38 Dose: 40 mg Documented By: Admin: 06/19/24 09:01 Dose: 40 mg Documented By: MIKE Polyethylene Glycol (Polyethylene (Miralax) 17 Gm Pack) 17 gm PO DAILY PRN PRN Reason: Constipation Stop: 07/19/24 20:13 Last Admin: 06/19/24 20:30 Dose: 17 gm Documented By: STEPHANIA Rosuvastatin Calcium (Rosuvastatin Calcium 20 Mg Tab) 40 mg PO QPM [facility] Stop: 07/18/24 20:59 Last Admin: 06/19/24 20:30 Dose: 40 mg Documented By: Admin: 06/18/24 20:37 Dose: 40 mg Documented By: ELIAZAR Vitamin B Complex (Vitamin B Complex Tab) 1 tab PO QAM [facility] Stop: 07/19/24 08:59 Last Admin: 06/20/24 08:39 Dose: 1 tab Documented By: Admin: 06/19/24 09:01 Dose: 1 tab Documented By: MIKE Vitamin D (Cholecalciferol 125 Mcg (5,000 Units) Tab) 125 mcg PO QAM [facility] Stop: 07/19/24 08:59 Last Admin: 06/20/24 08:38 Dose: 125 mcg Documented By: Admin: 06/19/24 09:00 Dose: 125 mcg Documented By: AML Zinc Sulfate (Zinc Sulfate 220 Mg Capsule) 220 mg PO QAM [place] Stop: 07/19/24 08:59 Last Admin: 06/20/24 08:39 Dose: 220 mg Documented By: Admin: 06/19/24 09:01 Dose: 220 mg Documented By: AML Discontinued Medications Sodium Chloride (Nss) 500 mls @ 999 mls/hr IV .Q31M ONE Stop: 06/18/24 10:47 Last Infusion: 06/18/24 11:03 Dose: Infused Documented By: AML(2) Admin: 06/18/24 10:29 Dose: 999 mls/hr Documented By: AML(2) Ioversol (Optiray 320 125ml) 120 ml IV ONCE ONE Stop: 06/18/24 11:38 Last Admin: 06/18/24 11:37 Dose: 120 ml Documented By: EDK Imaging Data Radiologist's Impression: Chest X-Ray 06/18/24 10:17 XR chest 1V portable CLINICAL HISTORY: Chest pain, nonspecific COMPARISON STUDY: Chest radiograph July 30, 2021. Chest CT October 05, 2021. FINDINGS: Lung volumes are normal. Lungs are clear. There is no pneumothorax or pleural effusion. Cardiac size is normal. Mediastinal contours are normal. There is no evidence for pulmonary edema. IMPRESSION: No acute cardiopulmonary findings. ACT 112: Negative or not required by law. Electronically signed by: Julio Walters M.D. 06/18/2024 11:[address] 06/18/24 11:23 CT SCAN OF THE BRAIN WITHOUT IV CONTRAST CLINICAL HISTORY: Syncope. Loss of balance. COMPARISON STUDY: No priors. TECHNIQUE: Unenhanced axial CT scan of the brain is performed from the vertex to the skull base. A dose lowering technique was utilized adhering to the principles of ALARA. FINDINGS: Brain parenchyma: There is age-related involutional change noting minimal microangiopathic disease. There is no hemorrhage, mass effect, or evidence of acute territorial ischemia by CT criteria. Hernández-white matter differentiation is preserved. No extra-axial fluid collection is seen. Ventricles, sulci, cisterns: Prominent secondary to involutional change. Intracranial vasculature: There is atherosclerotic calcification of the cavernous carotid arteries. Calvarium: Unremarkable. Sinuses and mastoids: The visualized paranasal sinuses are clear. The mastoid air cells are well pneumatized. Orbits: The bony orbits are grossly intact. IMPRESSION: There is no hemorrhage, mass effect, or evidence of acute territorial ischemia by CT criteria. ACT 112: Negative or not required by law. Electronically signed by: Reji Delgado M.D. 06/18/2024 12:04 PM Head CTA 06/18/24 11:23 CTA ANGIOGRAPHY OF THE HEAD CLINICAL HISTORY: off balance, syncope COMPARISON STUDY: No previous studies for comparison. TECHNIQUE: Helical axial images of the head were obtained following uneventful intravenous administration of 120 cc of Optiray. Sagittal and coronal reconstructions were viewed as well as maximal intensity projections on an independent 3-D workstation. Automated exposure control was utilized for the study. A dose lowering technique was utilized adhering to the principles of ALARA. FINDINGS: No acute intracranial hemorrhage, midline shift or mass effect is present. Brain volume is normal. Ventricular system is normal. Basal cisterns are patent. There are no extra-axial collections. The bilateral M1, M2, A1 and A2 segments are patent. Posterior circulation is intact. There is no intracranial aneurysm. IMPRESSION: No large vessel occlusion. No intracranial aneurysm. Unremarkable CTA of the head. ACT 112: Negative or not required by law. Electronically signed by: Julio Walters M.D. 06/18/2024 12:00 PM Neck CTA 06/18/24 11:23 NECK CTA HISTORY: off balance, syncope TECHNIQUE: Multiaxial CT images of the neck were performed following the intravenous administration of contrast to evaluate the major cervical vessels. 3D/MIP images were also obtained. Sagittal and coronal reformats were reviewed. All measurements were calculated based on NASCET criteria. A dose lowering technique was utilized adhering to the principles of ALARA. COMPARISON STUDY: None. FINDINGS: The aortic arch and proximal great vessels are widely patent. There is no significant stenosis, occlusion, or dissection identified within the bilateral common carotid, internal carotid, or vertebral arteries. Mild calcified plaque within the bilateral carotid bifurcations. IMPRESSION: No significant stenosis, occlusion, or dissection identified within the carotid or vertebral arteries. ACT 112: Negative or not required by law. Electronically signed by: Brett Hewitt M.D. 06/18/2024 12:27 PM Discharge Plan Visit Data Chief Complaint: Cardiac Assessment Stated Complaint: HEART ISSUES, LOW HR, DIZZINESS, REF BY DOC ED Provider: Salbador Giron Discharge Problem: Pre-syncope, Sinus bradycardia, First degree AV block Patient Disposition: Admitted As Inpatient Discharge Instructions Interventions: ED Discharge Assessment Last Done: 06/18/24 19:38
[2024-06-18] MEDS: OPTIRAY 320 125ml IV ONE (11:37)
--- NOTE | 2024-06-18 12:01 | CT Scan Report ---
CTA ANGIOGRAPHY OF THE HEAD CLINICAL HISTORY: off balance, syncope COMPARISON STUDY: No previous studies for comparison. TECHNIQUE: Helical axial images of the head were obtained following uneventful intravenous administr ation of 120 cc of Optiray. Sagittal and coronal reconstructions were viewed as well as maximal inten sity projections on an independent 3-D workstation. Automated exposure control was utilized for the study. A dose lowering technique was utilized adhering to the principles of ALARA. FINDINGS: No acute intracranial hemorrhage, midline shift or mass effect is present. Brain volume is normal. Ventricular system is normal. Basal cisterns are patent. There are no extra-axial collections . The bilateral M1, M2, A1 and A2 segments are patent. Posterior circulation is intact. There is no i ntracranial aneurysm. IMPRESSION: No large vessel occlusion. No intracranial aneurysm. Unremarkable CTA of the head. ACT 112: Negative or not required by law. Electronically signed by: Julio Walters M.D. 06/18/2024 12:00 PM
--- NOTE | 2024-06-18 12:05 | CT Scan Report ---
CT SCAN OF THE BRAIN WITHOUT IV CONTRAST CLINICAL HISTORY: Syncope. Loss of balance. COMPARISON STUDY: No priors. TECHNIQUE: Unenhanced axial CT scan of the brain is performed from the vertex to the skull base. A do se lowering technique was utilized adhering to the principles of ALARA. FINDINGS: Brain parenchyma: There is age-related involutional change noting minimal microangiopathic disease. T here is no hemorrhage, mass effect, or evidence of acute territorial ischemia by CT criteria. Hernández-wh ite matter differentiation is preserved. No extra-axial fluid collection is seen. Ventricles, sulci, cisterns: Prominent secondary to involutional change. Intracranial vasculature: There is atherosclerotic calcification of the cavernous carotid arteries. Calvarium: Unremarkable. Sinuses and mastoids: The visualized paranasal sinuses are clear. The mastoid air cells are well pneu matized. Orbits: The bony orbits are grossly intact. IMPRESSION: There is no hemorrhage, mass effect, or evidence of acute territorial ischemia by CT anne randall. ACT 112: Negative or not required by law. Electronically signed by: Reji Delgado M.D. 06/18/2024 12:04 PM
--- NOTE | 2024-06-18 12:28 | CT Scan Report ---
NECK CTA HISTORY: off balance, syncope TECHNIQUE: Multiaxial CT images of the neck were performed following the intravenous administration o f contrast to evaluate the major cervical vessels. 3D/MIP images were also obtained. Sagittal and cor onal reformats were reviewed. All measurements were calculated based on NASCET criteria. A dose low ering technique was utilized adhering to the principles of ALARA. COMPARISON STUDY: None. FINDINGS: The aortic arch and proximal great vessels are widely patent. There is no significant sten osis, occlusion, or dissection identified within the bilateral common carotid, internal carotid, or v ertebral arteries. Mild calcified plaque within the bilateral carotid bifurcations. IMPRESSION: No significant stenosis, occlusion, or dissection identified within the carotid or vertebral arteries . ACT 112: Negative or not required by law. Electronically signed by: Brett Hewitt M.D. 06/18/2024 12:27 PM
--- NOTE | 2024-06-18 15:31 | History & Physical Report ---
Date of Service June 18, 2024 Assessment & Plan (1) Pre-syncope: Plan: ? Symptomatic bradycardia Discussed with patient's [facility] siding installer Dr. Blair. Unfortunately cannot get a event monitor this evening and going into the holiday weekend. Will admit the patient overnight to watch for any episodes symptomatic bradycardia or pauses that would necessitate a pacemaker. If no events are seen overnight patient feels well can be discharged tomorrow and will be set up with a follow-up appointment and an event monitor for this coming week. Admitted to telemetry Optimize potassium 4.0, magnesium 2.0, at goal at time of admission Patient is not on beta-blockers or AV charles agents on admit Troponin is normal, no chest pain at any point Wound from prior fall is well-approximated with Dermabond. Augmentin continued for ppx. Did get tetanus booster - past hx 1x suspected A-fib. reported on Apple Watch. Follow-up event monitor did not show any episodes of A-fib. No recurrent A-fib, no documented A-fib. (2) Hypertension: (3) Hyperlipidemia: Plan Chronic stable issues Ascending aortic dilation: Next ultrasound scheduled in September. Avoid tobacco products. Avoid fluoroquinolones. No acute change in management. 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 Daily BMP, if elevated can add SSI. Prophylaxis: Lovenox Disposition: Telemetry CODE STATUS: Full code Diet: Regular, if any cardiac events or heart pauses make n.p.o. for possible pacemaker placement History of Present Illness Primary Care Provider: Eliazar Trevizo is a 73-year-old male with past medical history of GERD, hyperlipidemia, hypertension, bradycardia, asthma, MDD, elevated PSA, ascending aortic dilation who presents with recurrent presyncope and bradycardia Santhosh seen at the bedside with his present. He reports he has a longstanding history of bradycardia without syncope, presyncope, or hypotension. He did have a 30-day monitor in the past for a single episode of suspected A- fib noted on Apple Watch however 30-day monitor did not show any documented A- fib per patient. He reports that in the last month, and especially in the last 2 weeks has had progressive presyncope and lightheadedness which does not always correlate with standing up. His episodes have occurred while walking and exerting himself, and had 1 episode with standing. This past week he did get up at night to walk his dog briefly had some lightheadedness dizziness and then syncopized, falling into a window. Saw urgent care for this on 06/17, did have a tetanus shot updated and was placed on prophylactic Augmentin for 1 week. Lacerations were closed with Dermabond at that visit. She presented today for evaluation of continued presyncope He denies chest pain or chest pressure at any point. No fevers chills or sweats. No recent illnesses. No rashes Lyme is negative He does not take any beta-blockers or AV charles agents. He does have a trend on his Apple Watch which shows variability, and has noted high heart rate variability which has correlated with the symptoms although this does not necessarily report the rate at the same time. Overall his rate appears to have down trended and is often in the high 30s/low 40s. Discussed with patient's [facility] siding installer Dr. Blair. Unfortunately cannot get a event monitor this evening and going into the holiday weekend. Will admit the patient overnight to watch for any episodes symptomatic bradycardia or pauses that would necessitate a pacemaker. If no events are seen overnight patient feels well can be discharged tomorrow and will be set up with a follow-up appointment and an event monitor for this coming week. Allergies Allergy/AdvReac Type Severity Reaction Status Date / Time No Known Allergies Allergy Verified 06/17/24 11:34 Home Medications Medication Instructions Recorded Confirmed Type amlodipine 2.5 mg tablet (Norvasc) 5 mg PO QPM 07/14/20 06/18/24 History famotidine 40 mg tablet (Pepcid) 40 mg PO BID 07/14/20 06/18/24 History lisinopril 40 mg tablet 20 mg PO HS 07/14/20 06/18/24 History multivitamin 1 tab PO QAM 07/14/20 06/18/24 History pantoprazole 20 mg tablet,delayed 20 mg PO QAM 07/14/20 06/18/24 History release (Protonix) rosuvastatin 20 mg tablet (Crestor) 40 mg PO QPM 07/14/20 06/18/24 History ascorbic acid (vitamin C) 1,000 mg 1 g PO HS 07/23/21 06/18/24 History tablet (Vitamin C) cholecalciferol (vitamin D3) 125 125 mcg PO QAM 07/23/21 06/18/24 History mcg (5,000 unit) tablet (Vitamin D3) coQ10 (ubiquinol) 200 mg capsule 200 mg PO QPM 07/23/21 06/18/24 History vitamin B complex 1 cap PO QAM 07/23/21 06/18/24 History zinc 50 mg tablet 50 mg PO QAM 07/23/21 06/18/24 History amoxicillin 875 mg-potassium 1 tab PO BID 5 days #10 tabs 06/17/24 06/18/24 Rx clavulanate 125 mg tablet aspirin 81 mg tablet,delayed 81 mg PO QAM 06/17/24 06/18/24 History release (Adult Aspirin Regimen) Past Med/Surg History Problem List (Updated 06/18/24 @ 17:53 by Salbador Giron MD) Sinus bradycardia (Acute) Pre-syncope (Acute) Right knee DJD Encounter for pre-operative examination Laceration of thumb (Acute) Left knee DJD Medical History Abdominal aortic aneurysm Depression Osteoarthritis GERD (gastroesophageal reflux disease) Hypertension Hyperlipidemia Surgical History History of total knee replacement H/O hand surgery History of arthroscopy History of tonsillectomy History of esophagogastroduodenoscopy (EGD) History of colonoscopy History of cardiac cath Family History Other Alzheimer disease COPD (chronic obstructive pulmonary disease) Heart disease Obesity Social History Smoking Status: Never smoker Second Hand Exposure: Yes ( A CHILD); Do You Dip or Chew Tobacco: No; Hx Alcohol Use: Yes Alcohol type: beer, wine and hard liquor Hx Substance Use: No Preferred Language: Tajik Communication Ability: Effective Hearing Ability: Normal Prototyper Required: No Beliefs That Will Affect Care: None marital status: Current Living Situation: Spouse current occupational status: retired Feels Safe at Home: Yes Assistive Devices: Contacts and Glasses Physical Exam Physical Exam: General: A&Ox3. NAD. Cooperative. HEENT: 1x forehead lac, +L posterior scalp lacs well approximated w/ dermabond and no warmth/erythema/active bleeding Pulm: CTAB A&P. -wheezes, -rales, -rhonchi. Symmetrical chest rise. No increased work of breathing. No respiratory distress. Cardiac: regular, bradycardic, -mrg. Radial pulses intact and symmetrical. Abdominal: Nontender, nondistended, soft. BS present. Results & Data Results & Data Vital Signs (Past 12 Hours) Vital Signs Temp Pulse Pulse Resp BP BP Pulse Ox 06/18/24 14:33 42 L 14 127/68 96 06/18/24 14:25 36 L 06/18/24 14:00 45 L 18 125/62 98 06/18/24 13:30 41 L 18 134/67 96 06/18/24 13:06 41 L 15 118/67 97 06/18/24 12:30 42 L 16 134/69 98 06/18/24 12:04 45 L 20 143/89 H 98 06/18/24 12:03 45 L 17 99 06/18/24 12:02 143/89 H 06/18/24 12:02 143/89 H 06/18/24 11:58 140/71 06/18/24 11:58 140/71 06/18/24 11:57 49 L 16 06/18/24 11:30 80 16 06/18/24 11:06 146/69 H 06/18/24 11:03 43 L 23 98 06/18/24 11:00 47 L 15 06/18/24 10:45 43 L 14 97 06/18/24 10:45 133/68 06/18/24 10:45 133/68 06/18/24 10:45 133/68 06/18/24 10:30 40 L 16 96 06/18/24 10:30 136/64 06/18/24 10:30 136/64 06/18/24 10:27 40 L 15 97 06/18/24 10:27 39 L 06/18/24 10:25 97 06/18/24 10:25 06/18/24 10:02 36.0 C L 45 L 20 144/75 H 98 O2 Del Method O2 Flow Rate 06/18/24 14:33 06/18/24 14:25 06/18/24 14:00 06/18/24 13:30 06/18/24 13:06 06/18/24 12:30 06/18/24 12:04 Room Air 06/18/24 12:03 06/18/24 12:02 06/18/24 12:02 06/18/24 11:58 06/18/24 11:58 06/18/24 11:57 06/18/24 11:30 06/18/24 11:06 06/18/24 11:03 06/18/24 11:00 06/18/24 10:45 06/18/24 10:45 06/18/24 10:45 06/18/24 10:45 06/18/24 10:30 06/18/24 10:30 06/18/24 10:30 06/18/24 10:27 06/18/24 10:27 06/18/24 10:25 Room Air 06/18/24 10:25 Room Air 0 06/18/24 10:02 Room Air PG Care Time/CCT Total # of Minutes Spent Total Time Spent with Patient: Total time spent is greater than 50% in coordination of care (as documented) at patient's floor/unit and/or counseling patient: Coding Level of Care Code 11895 INT INP/OBS CARE 3/75MIN Diagnoses Pre-syncope R55 Hypertension I10 Hyperlipidemia E78.5
[2024-06-18] MEDS ORDERED: ATROPINE SULFATE 0.1 MG/ML 10ML SYR IV PRN (16:49)
[2024-06-18] MEDS ORDERED: ACETAMINOPHEN 325 MG TAB PO PRN (19:38)
[2024-06-18] MEDS: ENOXAPARIN INJ 40 MG/0.4 ML SYR SQ SCH (20:37)
[2024-06-18] MEDS: ROSUVASTATIN CALCIUM 20 MG TAB PO SCH (20:37)
[2024-06-18] MEDS: AMOXICILLIN/CLAVULANATE 875 MG TAB PO SCH (20:38)
[2024-06-18] MEDS: FAMOTIDINE 40 MG TABLET PO SCH (20:38)
[2024-06-18] MEDS: lisinopril 20 MG TAB PO SCH (20:38)
[2024-06-18] MEDS: amLODIPine BESYLATE 5 MG TAB PO SCH (20:40)
[2024-06-18] MEDS ORDERED: NON-FORMULARY MEDICATION (Coq10 (Ubiquinol) 200 mg Capsule) PO SCH (21:00)
--- NOTE | 2024-06-19 00:34 | Electrocardiogram Report ---
Test Reason : Blood Pressure : */* mmHG Vent. Rate : 40 BPM Atrial Rate : 40 BPM P-R Int : 210 ms QRS Dur : 96 ms QT Int : 468 ms P-R-T Axes : -4 -6 -8 degrees QTcB Int : 381 ms Marked sinus bradycardia with 1st degree A-V block Poor R wave progression, consider anterior WI vs. lead placement vs. LVH Abnormal ECG When compared with ECG of 30-Jul-2021 12:53, No significant change was found Confirmed by Romeo Mauricio ([id number]) on 06/19/2024 12:33:41 AM Referred By: REFERRED SELF Confirmed By: Romeo Mauricio
[2024-06-19 06:51] LABS: Basophils # (auto) 0.04 K/uL (0.00-0.20); Basophils % (auto) 0.7 %; Eosinophils # (auto) 0.18 K/uL (0.00-0.50); Eosinophils % (auto) 3.2 %; Hematocrit (blood only) 37.9 % (42.0-52.0); Immature Granulocytes # (auto) 0.02 K/uL (0.01-0.20); Immature Granulocytes % (auto) 0.4 %; Lymphocytes % (auto) 14.4 %; Mean Corpuscular Hemoglobin 31.8 pg (25.0-34.0); Mean Corpuscular Hgb Conc 34.3 g/dL (32.0-36.0); Mean Corpuscular Volume 92.7 fL (80.0-100.0); Mean Platelet Volume 11.7 fL (9.4-12.4); Monocytes # (auto) 0.45 K/uL (0.11-0.59); Monocytes % (auto) 8.1 %; Neutrophils # (auto) 4.05 K/uL (1.40-6.50); Neutrophils % (auto) 73.2 %; Platelet Count 153 K/uL (130-400); RDW Coefficient of Variation 12.7 % (11.5-14.5); RDW Standard Deviation 43.1 fL (36.4-46.3); Red Blood Count 4.09 M/uL (4.70-6.10); White Blood Count 5.54 K/ul (4.8-10.8)
[2024-06-19 07:10] LABS: BUN Creatinine Ratio 20.7 (10-20); Calcium 8.8 mg/dl (8.6-10.3); Creatinine Clr Calc Pharmacy 79.6 ml/min; Est GFR (African American) 98.5 ml/min; Potassium 4.1 mmol/L (3.5-5.1)
[2024-06-19] MEDS: CHOLECALCIFEROL 125 MCG (5,000 UNITS) TAB PO SCH (09:00)
[2024-06-19] MEDS: ASPIRIN 81 MG ECTAB PO SCH (09:00)
[2024-06-19] MEDS: VITAMIN B COMPLEX TAB PO SCH (09:01)
[2024-06-19] MEDS: PANTOprazole 40 MG TAB PO SCH (09:01)
[2024-06-19] MEDS: MULTIVITAMIN TAB PO SCH (09:01)
[2024-06-19] MEDS: ZINC SULFATE 220 MG CAPSULE PO SCH (09:01)
--- NOTE | 2024-06-19 13:03 | Hospitalist Progress Note ---
Date of Service June 19, 2024 Assessment & Plan (1) Symptomatic sinus bradycardia: Plan: Patient reports he monitors his HRs routinely with his Apple Watch. For several years his resting pulse was low in the 40s and 50s but he has felt well in the past. More recently, in the last 1-2 months and particularly the last few weeks, his low HR setting of 40 has "dinged" many times. His watch has showed numerous episodes of HRs in the 30s. Our telemetry thus far shows he is <45 BPM most times. He has been as low as 34 overnight. No pauses or higher block. No junctional rhythms. TSH wnl. Lyme negative. Orthostatic BPs today were negative. CTA head/neck with intact circulation. Echo is pending to r/o valvular disease that could cause dizziness/lightheadedness. Will get a good look at the aortic root as well given his h/o ascending aortic aneurysm. In the last few weeks he has had exertional dizziness/lightheadedness/near- syncope several times and, on 1 occasion, had actual syncope leading to scalp/head lacerations x 2 (got up in the middle of the night at home and "blacked out"). Will consult Dr Elam from [facility] for his opinion re: his symptomatic bradycardia and potential for needing a pacemaker. (2) Pre-syncope: Plan: see above (3) Hypertension: Plan: cont amlodipine cont lisinopril avoid AV charles agents no orthostasis seen on orthostatic checks today (4) Hyperlipidemia: Plan: cont statin (5) Ascending aortic aneurysm: Plan: follows with Dr Micah Blair, [facility] for such aortic root will be checked on echo today I cannot find any old records of the size of his aneurysm (6) Scalp laceration: Plan: x 2 repaired at outside urgent care healing well cont augmentin for prophylaxis (7) First degree AV block: Plan: as seen on tele/EKG see #1 above Admission and Anticipated Discharge Date Admission Date: June 18, 2024 Subjective no events overnight tele - severe sinus bradycardia, lowest HRs 30-35 BPM average is about 40-45 peak ~50 BPM no AV block, junctional rhythms, or pauses no tachycardia patient denies any dizziness or lightheadedness or presyncope orthostatic BPs checked and negative this am patient reports his average HR on his Apple Watch has been 40s/50s over the last few months, but in the last few weeks his HR has been "dinging" frequently as his HRs keep dropping to <40 Review of Systems Review of Systems: CV - no chest pain pulm - no dyspnea or FERNANDEZ GI - no abd pain or N/V neuro - no headaches Physical Exam Physical Exam: gen - NAD, looks well neck - no JVD mouth - MMM heart - severe bradycardia, s1 s2, no murmur lungs - CTA b/l abd - soft NT ND BS+ ext - no edema, pulses 2+ b/l psych - a/o x 3 skin - laceration L forehead approximated/clean; laceration left posterior occipital region approximated/clean Results & Data Results & Data Vital Signs (Past 12 Hours) Vital Signs Temp Pulse Pulse Resp BP Pulse Ox O2 Del Method 06/19/24 10:49 36.3 C L 46 L 16 129/62 95 Room Air 06/19/24 08:02 36.5 C 42 L 16 121/63 96 Room Air 06/19/24 08:00 40 L 06/19/24 03:44 36.5 C 39 L 18 107/61 96 Room Air Laboratory Results Laboratory Results - last 24 hr 06/19/24 06:09 WBC 5.54 RBC 4.09 L Hgb 13.0 L Hct 37.9 L MCV 92.7 MCH 31.8 MCHC 34.3 RDW Std Deviation 43.1 RDW Coeff of Aj 12.7 Plt Count 153 MPV 11.7 Immature Gran % (Auto) 0.4 Neut % (Auto) 73.2 Lymph % (Auto) 14.4 Cascade % (Auto) 8.1 Eos % (Auto) 3.2 Baso % (Auto) 0.7 Neut # (Auto) 4.05 Lymph # (Auto) 0.80 L Cascade # (Auto) 0.45 Eos # (Auto) 0.18 Baso # (Auto) 0.04 Immature Gran # (Auto) 0.02 Sodium 139 Potassium 4.1 Chloride 105 Carbon Dioxide 29 Anion Gap 5 BUN 18 Creatinine 0.87 Est Cr Clr Drug Dosing 79.6 Est GFR ( Amer) 98.5 Est GFR (Non-Af Amer) 85.0 BUN/Creatinine Ratio 20.7 H Glucose 113 H Calcium 8.8 Diagnostic Findings echo pending EKG - my reading - sinus hazel, 1st degree AV block, nonspecific ST changes inferior leads PG Care Time/CCT Total # of Minutes Spent Total Time Spent with Patient: Total time spent is greater than 50% in coordination of care (as documented) at patient's floor/unit and/or counseling patient: Coding Level of Care Code 40778 SUB INP/OBS CARE 2/35MIN Diagnoses Symptomatic sinus bradycardia R00.1 Pre-syncope R55 Hypertension I10 Hyperlipidemia E78.5 Ascending aortic aneurysm I71.21 Scalp laceration S01.01XA First degree AV block I44.0
--- NOTE | 2024-06-19 15:16 | Cardiology Consultation ---
Date of Consultation June 19, 2024 Assessment & Plan (1) Ascending aortic aneurysm: (2) Sinus bradycardia: Plan 1. Syncope: Most likely related to bradycardia. This seems to have been related to an arrhythmia and not orthostatic hypotension. He has not been orthostatic otherwise. It is possible this could be related to her malignant ventricular arrhythmia, but this seems less likely given his preserved LV systolic function and absence of ischemic symptoms. 2. Bradycardia: He has noted to have an element of sinus bradycardia. At times he has a competing junctional rhythm. This is longstanding in nature. Perhaps slightly worse recently. He has had some documented heart rates in the 30s while awake which would represent a class II indication for permanent pacemaker. Additionally, it would seem reasonable to believe his bradycardia was responsible for his syncopal episode and exercise intolerance. Provocative testing could be performed which would include exercise treadmill testing to monitor his chronotropic response, but I think there is a good indication for permanent pacing at this point and we did discuss the procedure today. He seems in favor and would tentatively plan for implant on June 22. 3. Aortic aneurysm. Apparently stable based on serial scans. History of Present Illness Reason for Consultation: Syncope, bradycardia Requesting Physician: [place] Attending Physician: Ramiro Magana MD History of Present Illness 1. Longstanding hypertension probably since he was in tenth grade with initial treatment at approximately the age of 39. 2. A. Dilated ascending aorta 4.5 cm by coronary calcium score 09/2021. B. Echocardiogram 10/11, normal biventricular size and function, EF 65%, dilated ascending aorta 4.2 cm with a trileaflet aortic valve with mild aortic insufficiency. 3. Coronary calcium score with a score of 108.8 with calcium, predominantly in the left main and right coronary artery. 4. Hyperlipidemia. 5. 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 6. Alcohol use. 7. Screening abdominal aortic study, which was negative for an aneurysm 09/2021. 8. Hyponatremia, likely secondary to alcohol consumption. The patientHe is a 73-year-old gentleman with a history of an aortic aneurysm who presented to the hospital after an episode of syncope. The patient has not been feeling well for a few days. He states that a few days ago he developed an element of activity intolerance characterized primarily by dizziness and weakness. As a result he curtailed a lot of his activities. The episode of syncope happened when he got out of bed at nighttime to let his dogs out. He apparently fell and smashed a window in his house. He was somewhat disoriented afterwards and believed he had syncope. He did not endorse symptoms of palpitations. He has not had other exertional symptoms such as chest discomfort or limiting dyspnea. He did not report symptoms consistent with orthostatic hypotension. No positional dizziness. He does have a watch which monitors his heart rates. While he does not monitor these closely, he is aware of the heart rate range over time and believes his heart rate has been slowly decreasing over several months. Additionally, his watch gives him an alert when his heart rate is 40 or below. Recently he has been receiving these alerts while he has been awake. Prior to the past week he had been very active. He made an attempt earlier this year to be more active and lose weight. He does this primarily by walking extensively. Generally speaking he gets ascending hills and stairs without symptoms. Again, generally no exertional symptoms such as exertional dyspnea or chest pain. Allergies Allergy/AdvReac Type Severity Reaction Status Date / Time No Known Allergies Allergy Verified 06/17/24 11:34 Home Medications Medication Instructions Recorded Confirmed Type amlodipine 2.5 mg tablet (Norvasc) 5 mg PO QPM 07/14/20 06/18/24 History famotidine 40 mg tablet (Pepcid) 40 mg PO BID 07/14/20 06/18/24 History lisinopril 40 mg tablet 20 mg PO HS 07/14/20 06/18/24 History multivitamin 1 tab PO QAM 07/14/20 06/18/24 History pantoprazole 20 mg tablet,delayed 20 mg PO QAM 07/14/20 06/18/24 History release (Protonix) rosuvastatin 20 mg tablet (Crestor) 40 mg PO QPM 07/14/20 06/18/24 History ascorbic acid (vitamin C) 1,000 mg 1 g PO HS 07/23/21 06/18/24 History tablet (Vitamin C) cholecalciferol (vitamin D3) 125 125 mcg PO QAM 07/23/21 06/18/24 History mcg (5,000 unit) tablet (Vitamin D3) coQ10 (ubiquinol) 200 mg capsule 200 mg PO QPM 07/23/21 06/18/24 History vitamin B complex 1 cap PO QAM 07/23/21 06/18/24 History zinc 50 mg tablet 50 mg PO QAM 07/23/21 06/18/24 History amoxicillin 875 mg-potassium 1 tab PO BID 5 days #10 tabs 06/17/24 06/18/24 Rx clavulanate 125 mg tablet aspirin 81 mg tablet,delayed 81 mg PO QAM 06/17/24 06/18/24 History release (Adult Aspirin Regimen) acetaminophen 325 mg tablet 650 mg (2 x 325 mg) PO Q4H PRN #0 06/22/24 Rx tabs oxycodone 5 mg tablet 5 mg PO Q4H PRN pain #10 tabs 06/22/24 Rx Patient History Medical History Abdominal aortic aneurysm Depression Osteoarthritis GERD (gastroesophageal reflux disease) Hypertension Hyperlipidemia Surgical History History of total knee replacement H/O hand surgery History of arthroscopy History of tonsillectomy History of esophagogastroduodenoscopy (EGD) History of colonoscopy History of cardiac cath Family History Other Alzheimer disease COPD (chronic obstructive pulmonary disease) Heart disease Obesity Social History Smoking Status: Never smoker Second Hand Exposure: Yes ( A CHILD); Do You Dip or Chew Tobacco: No; Hx Alcohol Use: Yes Alcohol type: hard liquor Hx Substance Use: No Preferred Language: Kuwaiti Communication Ability: Effective Hearing Ability: Normal Fly Finisher Required: No Beliefs That Will Affect Care: None marital status: Current Living Situation: Spouse current occupational status: retired Feels Safe at Home: Yes Assistive Devices: Cane and Walker Review of Systems Review of Systems: per HPI Physical Exam Physical Exam: The patient is alert and oriented. Mood and affect appeared normal. He answered all questions appropriately. HEENT: Pupils are equal and reactive to light and accommodation. Extraocular movements are intact. The sclerae are anicteric. Neuro: Cranial nerves intact Neck: Patient's neck is supple. He has palpable carotid pulses bilaterally without bruits on auscultation. There is no evidence of jugular venous distenti on. The thyroid is not enlarged. Lungs: Clear to auscultation bilaterally. He has good air movement without use of accessory muscles. No rales wheezes or rhonchi. Cardiac: Heart demonstrates a regular rate and rhythm. Normal S1 and S2. No murmurs on examination. Pulses: The patient has palpable radial pulses bilaterally that are equal in intensity Extremities: There was no evidence of hypoperfusion. There is no cyanosis or clubbing. There is no edema. Skin: I did not appreciate any rashes on examination today. Atrial fibrillation Results & Data Vital Signs (Past 12 Hours) Vital Signs Temp Pulse Pulse Resp BP Pulse Ox O2 Del Method 06/19/24 15:00 36.6 C 52 L 20 129/67 98 Room Air 06/19/24 10:49 36.3 C L 46 L 16 129/62 95 Room Air 06/19/24 08:02 36.5 C 42 L 16 121/63 96 Room Air 06/19/24 08:00 40 L 06/19/24 03:44 36.5 C 39 L 18 107/61 96 Room Air Laboratory Results Abnormal Lab Results 06/19/24 06:09 WBC 5.54 RBC 4.09 L Hgb 13.0 L Hct 37.9 L MCV 92.7 MCH 31.8 MCHC 34.3 RDW Std Deviation 43.1 RDW Coeff of Aj 12.7 Plt Count 153 MPV 11.7 Immature Gran % (Auto) 0.4 Neut % (Auto) 73.2 Lymph % (Auto) 14.4 [place] % (Auto) 8.1 Eos % (Auto) 3.2 Baso % (Auto) 0.7 Neut # (Auto) 4.05 Lymph # (Auto) 0.80 L [place] # (Auto) 0.45 Eos # (Auto) 0.18 Baso # (Auto) 0.04 Immature Gran # (Auto) 0.02 Sodium 139 Potassium 4.1 Chloride 105 Carbon Dioxide 29 Anion Gap 5 BUN 18 Creatinine 0.87 Est Cr Clr Drug Dosing 79.6 Est GFR ( Amer) 98.5 Est GFR (Non-Af Amer) 85.0 BUN/Creatinine Ratio 20.7 H Glucose 113 H Calcium 8.8 Diagnostic Findings 1. Normal left ventricular size and systolic function with no regional wall motion abnormalities. 2. Ejection fraction as calculated by Biplane Simpsons method is 65 %. 3. No left ventricular hypertrophy. 4. Grade I diastolic dysfunction of the left ventricle (impaired relaxation pattern) with normal left atrial filling pressure. 5. Mildly dilated right ventricle with normal systolic function. 6. Mild biatrial dilation. 7. Dilated aortic root (3.9 cm), ascending aorta (4.2 cm) and aortic arch (3.8 cm). 8. Sclerotic, tricuspid aortic valve without stenosis. 9. Mild aortic insufficiency. 10. Mild tricuspid regurgitation. 11. Top normal estimated pulmonary artery pressures, estimated PASP is 33 mmHg. 12. Compared to previous study from 10/02/2022 , there is no significant change. Echocardiogram 06/19/2024: Normal LV systolic function with ejection fraction of 55 to 60%. No regional wall motion abnormalities. Mild aortic insufficiency. PG Care Time/CCT Total # of Minutes Spent Total Time Spent with Patient: Total time spent is greater than 50% in coordination of care (as documented) at patient's floor/unit and/or counseling patient: Coding Level of Care Code 13984 INT INP/OBS CARE 3/75MIN Diagnoses Ascending aortic aneurysm I71.21 Sinus bradycardia R00.1
--- NOTE | 2024-06-19 15:26 | XCELERA ---
[id number]
[2024-06-19] MEDS: POLYETHYLENE (MIRALAX) 17 GM PACK PO PRN (20:30)
[2024-06-20 06:34] LABS: Basophils # (auto) 0.04 K/uL (0.00-0.20); Basophils % (auto) 0.7 %; Eosinophils # (auto) 0.21 K/uL (0.00-0.50); Eosinophils % (auto) 3.6 %; Hematocrit (blood only) 37.3 % (42.0-52.0); Hemoglobin 13.2 g/dl (14.0-18.0); Immature Granulocytes # (auto) 0.01 K/uL (0.01-0.20); Immature Granulocytes % (auto) 0.2 %; Lymphocytes # (auto) 0.83 K/uL (1.20-3.40); Lymphocytes % (auto) 14.3 %; Mean Corpuscular Hemoglobin 32.4 pg (25.0-34.0); Mean Corpuscular Hgb Conc 35.4 g/dL (32.0-36.0); Mean Corpuscular Volume 91.6 fL (80.0-100.0); Mean Platelet Volume 11.5 fL (9.4-12.4); Monocytes # (auto) 0.66 K/uL (0.11-0.59); Monocytes % (auto) 11.4 %; Neutrophils # (auto) 4.05 K/uL (1.40-6.50); Neutrophils % (auto) 69.8 %; Platelet Count 144 K/uL (130-400); RDW Coefficient of Variation 12.6 % (11.5-14.5); Red Blood Count 4.07 M/uL (4.70-6.10)
[2024-06-20 06:50] LABS: BUN Creatinine Ratio 15.4 (10-20); Calcium 8.9 mg/dl (8.6-10.3); Creatinine Clr Calc Pharmacy 76.1 ml/min; Est GFR (African American) 95.9 ml/min; Est GFR (Non-African American) 82.7 ml/min; Potassium 4.5 mmol/L (3.5-5.1)
--- NOTE | 2024-06-20 10:47 | Hospitalist Progress Note ---
Date of Service June 20, 2024 Assessment & Plan (1) Symptomatic sinus bradycardia: Plan: Ongoing HRs in the 30s and low 40s on monitoring. Minor pauses also seen this am. Had symptoms this am (dizzy, lightheaded, weak) when his rates were low 30s. TSH wnl. Lyme negative. Orthostatic BPs negative. CTA head/neck with intact circulation. Echo with preserved EF, normal LV wall motion, and no valvular disease. In the last few weeks he has had exertional dizziness/lightheadedness/near- syncope several times and, on 1 occasion, had actual syncope leading to scalp/head lacerations x 2 (got up in the middle of the night at home and "blacked out"). Appreciate Dr Elam's consult from [facility] [place] [place] Cardiology. Plan is for permanent pacemaker insertion on Friday, 06/22. Due to his symptoms this am, pauses, severe bradycardia, etc. I asked staff to place pacer pads on him. If he has sustained HRs in the 30s or less, high AV block, etc could use low- dose dopamine infusion to increase his rates. (2) Pre-syncope: Plan: see above (3) Hypertension: Plan: cont amlodipine hold lisinopril avoid AV charles agents no orthostasis seen on orthostatic BP checks (4) Hyperlipidemia: Plan: cont statin (5) Ascending aortic aneurysm: Plan: follows with Dr Micah Blair, [facility] cardiology for such aortic root wnl on echo this admission (6) Scalp laceration: Plan: x 2 repaired at outside urgent care healing well cont augmentin for prophylaxis (7) First degree AV block: Plan: as seen on tele/EKG see #1 above (8) Hyperglycemia: Plan: check Hba1c in am r/o early DM or pre-DM Plan appreciate Dr Elam's assistance cont tele monitoring left message for pt's on her voicemail this evening Admission and Anticipated Discharge Date Admission Date: June 18, 2024 Subjective tele overnight - ongoing severe sinus bradycardia with rates in the low 30s at times this am patient felt poorly - rates in the low 30s and some minor pauses as long as 3.5 seconds no high AV block seen he felt dizzy/lightheaded after walking no syncope or presyncope no chest pain or dyspnea Review of Systems Review of Systems: gen - no fevers cv - no orthopnea, no edema pulm - no cough, no dyspnea or FERNANDEZ GI - no N/V Physical Exam Physical Exam: gen - NAD, laying comfortably in bed neck - no JVD mouth - MMM heart - severe bradycardia - rates upper 30s/low 40s, s1 s2, no murmur lungs - CTA b/l abd - soft NT ND BS+ ext - no edema, pulses feet 2+ b/l; radial pulses 2+ b/l psych - a/o x 3 skin - laceration L forehead approximated/clean Results & Data Results & Data Vital Signs (Past 12 Hours) Vital Signs Temp Pulse Pulse Resp BP Pulse Ox O2 Del Method 06/20/24 08:00 42 L 06/20/24 07:00 36.6 C 41 L 16 108/59 L 97 Room Air 06/20/24 03:42 36.8 C 39 L 18 119/60 97 Room Air 06/19/24 23:19 36.7 C 40 L 16 122/61 96 Room Air 06/19/24 23:13 51 L Laboratory Results Laboratory Results - last 24 hr 06/20/24 06:16 WBC 5.80 RBC 4.07 L Hgb 13.2 L Hct 37.3 L MCV 91.6 MCH 32.4 MCHC 35.4 RDW Std Deviation 42.0 RDW Coeff of Aj 12.6 Plt Count 144 MPV 11.5 Immature Gran % (Auto) 0.2 Neut % (Auto) 69.8 Lymph % (Auto) 14.3 [place] % (Auto) 11.4 Eos % (Auto) 3.6 Baso % (Auto) 0.7 Neut # (Auto) 4.05 Lymph # (Auto) 0.83 L [place] # (Auto) 0.66 H Eos # (Auto) 0.21 Baso # (Auto) 0.04 Immature Gran # (Auto) 0.01 Sodium 137 Potassium 4.5 Chloride 103 Carbon Dioxide 30 Anion Gap 4 BUN 14 Creatinine 0.91 Est Cr Clr Drug Dosing 76.1 Est GFR ( Amer) 95.9 Est GFR (Non-Af Amer) 82.7 BUN/Creatinine Ratio 15.4 Glucose 127 H Calcium 8.9 PG Care Time/CCT Total # of Minutes Spent Total Time Spent with Patient: Total time spent is greater than 50% in coordination of care (as documented) at patient's floor/unit and/or counseling patient: Coding Level of Care Code 51738 SUB INP/OBS CARE 2/35MIN Diagnoses Symptomatic sinus bradycardia R00.1 Pre-syncope R55 Hypertension I10 Hyperlipidemia E78.5 Ascending aortic aneurysm I71.21 Scalp laceration S01.01XA First degree AV block I44.0 Hyperglycemia R73.9
--- NOTE | 2024-06-20 12:04 | Cardiology Progress Note ---
Date of Service June 20, 2024 Assessment & Plan (1) Ascending aortic aneurysm: (2) Sinus bradycardia: Plan 1. Syncope: Most likely related to bradycardia. Recurrent symptoms today without syncope in the setting of bradycardia. 2. Bradycardia: He seems to be symptomatic at times. This is all sinus node dysfunction without evidence of high degree AV dysfunction. As such, I do not think there is a need for temporary pacing or more aggressive intervention even in the presence of symptoms and bradycardia. In extreme circumstances isoproterenol or dopamine would be effective in increasing the heart rate. Current plan is to proceed with permanent pacemaker on Friday. 3. Aortic aneurysm. Apparently stable based on serial scans. Admission and Anticipated Discharge Date Admission Date: June 18, 2024 Subjective This morning patient was walking and felt well. However, after returning from his walk he began to feel somewhat dizzy and weak. This was associated with heart rates in the 30s. Currently feeling better. No actual syncope. No sense of palpitation. No chest pain or breathing difficulty. Review of Systems Review of Systems: Per HPI Physical Exam Physical Exam: The patient is alert and oriented. Mood and affect appeared normal. He answered all questions appropriately. HEENT: Pupils are equal and reactive to light and accommodation. Extraocular movements are intact. The sclerae are anicteric. Neuro: Cranial nerves intact Lungs: Clear to auscultation bilaterally. He has good air movement without use of accessory muscles. No rales wheezes or rhonchi. Cardiac: Heart demonstrates a regular rate and rhythm. Normal S1 and S2. No murmurs on examination. Pulses: The patient has palpable radial pulses bilaterally that are equal in intensity Extremities: There was no evidence of hypoperfusion. There is no cyanosis or clubbing. There is no edema. Skin: I did not appreciate any rashes on examination today. Atrial fibrillation Results & Data Vital Signs (Past 12 Hours) Vital Signs Temp Pulse Pulse Resp BP Pulse Ox O2 Del Method 06/20/24 10:50 36.4 C L 40 L 16 121/66 95 Room Air 06/20/24 08:00 42 L 06/20/24 07:00 36.6 C 41 L 16 108/59 L 97 Room Air 06/20/24 03:42 36.8 C 39 L 18 119/60 97 Room Air Laboratory Results Abnormal Lab Results 06/20/24 06:16 WBC 5.80 RBC 4.07 L Hgb 13.2 L Hct 37.3 L MCV 91.6 MCH 32.4 MCHC 35.4 RDW Std Deviation 42.0 RDW Coeff of Aj 12.6 Plt Count 144 MPV 11.5 Immature Gran % (Auto) 0.2 Neut % (Auto) 69.8 Lymph % (Auto) 14.3 [place] % (Auto) 11.4 Eos % (Auto) 3.6 Baso % (Auto) 0.7 Neut # (Auto) 4.05 Lymph # (Auto) 0.[address] [place] # (Auto) 0.66 H Eos # (Auto) 0.21 Baso # (Auto) 0.04 Immature Gran # (Auto) 0.01 Sodium 137 Potassium 4.5 Chloride 103 Carbon Dioxide 30 Anion Gap 4 BUN 14 Creatinine 0.91 Est Cr Clr Drug Dosing 76.1 Est GFR ( Amer) 95.9 Est GFR (Non-Af Amer) 82.7 BUN/Creatinine Ratio 15.4 Glucose 127 H Calcium 8.9 PG Care Time/CCT Total # of Minutes Spent Total Time Spent with Patient: Total time spent is greater than 50% in coordination of care (as documented) at patient's floor/unit and/or counseling patient: Coding Level of Care Code 99538 SUB INP/OBS CARE 235MIN Diagnoses Ascending aortic aneurysm I71.21 Sinus bradycardia R00.1
[2024-06-21 06:32] LABS: BUN Creatinine Ratio 19.5 (10-20); Calcium 8.9 mg/dl (8.6-10.3); Creatinine Clr Calc Pharmacy 89.7 ml/min; Est GFR (African American) 103.6 ml/min; Est GFR (Non-African American) 89.4 ml/min; Potassium 4.5 mmol/L (3.5-5.1)
[2024-06-21 07:19] LABS: Estimated Average Glucose 123 mg/dl; Hemoglobin A1C 5.9 % (4.5-5.6)
[2024-06-21] MEDS: DOCUSATE SODIUM/SENNA 50/8.6MG TAB PO SCH (11:02)
[2024-06-21] MEDS: POLYETHYLENE (MIRALAX) 17 GM PACK PO SCH (11:02)
--- NOTE | 2024-06-21 13:46 | Hospitalist Progress Note ---
Date of Service June 21, 2024 Assessment & Plan (1) Symptomatic sinus bradycardia: Plan: Ongoing HRs in the 30s and low 40s on monitoring. Minor pauses seen 06/20/24. Was dizzy, lightheaded, and weak when he was walking in the hallways on 06/20/24. Rates at that time were low 30s. TSH wnl. Lyme negative. Orthostatic BPs negative. CTA head/neck with intact circulation. Echo with preserved EF, normal LV wall motion, and no valvular disease. In the last few weeks he has had exertional dizziness/lightheadedness/near- syncope several times and, on 1 occasion, had actual syncope leading to scalp/head lacerations x 2 (got up in the middle of the night at home and "blacked out"). Appreciate Dr Elam's consult [place] [facility] [place]. Plan is for permanent pacemaker insertion on Friday, 06/22. NPO after MN tonight for such. Check CBC, INR in am. Hold SC Lovenox (he actually had been refusing such since admission). pacer pads are in place in the event he needed emergent pacing. If he has sustained HRs in the 30s or less, high AV block, etc could use low- dose dopamine infusion to increase his rates. thus far has not needed such. (2) Pre-syncope: Plan: see above (3) Hypertension: Plan: cont amlodipine hold lisinopril avoid AV charles agents no orthostasis seen on orthostatic BP checks (4) Hyperlipidemia: Plan: cont statin (5) Ascending aortic aneurysm: Plan: follows with Dr Micah Blair, [facility] cardiology for such aortic root wnl on echo this admission (6) Scalp laceration: Plan: x 2 repaired at outside urgent care healing well cont augmentin for prophylaxis - day #5 of 7 of such (7) First degree AV block: Plan: as seen on tele/EKG see #1 above (8) Prediabetes: Plan: a1c 5.9% c/w pre-DM patient aware of this diagnosis was told he was pre-diabetic years ago, and in fact his a1cs were >6% in the past lost 20+ pounds of weight last few years to help with the glucose issue f/u with PCP for such Plan appreciate Dr Elam's assistance cont tele monitoring left message for pt's on her voicemail yesterday evening NPO after MN tonight for pacemaker insertion tomorrow, 06/22 Admission and Anticipated Discharge Date Admission Date: June 18, 2024 Subjective tele overnight - ongoing sinus hazel, most rates ~40BPM many dips into the 30s lowest HR upper 20s no 2nd or 3rd degree AV block patient w/o complaints today yesterday had significant dizziness/lightheadedness - none today eating well no stool since admission Review of Systems Review of Systems: cv - no orthopnea, no edema pulm - no dyspnea GI - no N/V Physical Exam Physical Exam: gen - NAD, laying comfortably in bed neck - no JVD mouth - MMM heart - severe bradycardia - heart rates upper 30s/low 40s, s1 s2, no murmur lungs - CTA b/l abd - soft NT ND BS+ ext - no edema, pulses feet 2+ b/l psych - a/o x 3 skin - laceration L forehead approximated/clean; laceration L occipital region well-approximated Results & Data Results & Data Vital Signs (Past 12 Hours) Vital Signs Temp Pulse Pulse Resp BP Pulse Ox O2 Del Method 06/21/24 11:00 36.9 C 45 L 20 143/68 H 96 Room Air 06/21/24 07:00 36.6 C 44 L 18 143/64 H 97 Room Air 06/21/24 03:59 36.7 C 44 L 18 131/57 L 95 Room Air 06/21/24 02:36 44 L Laboratory Results Laboratory Results - last 24 hr 06/21/24 05:27 Sodium 137 Potassium 4.5 Chloride 105 Carbon Dioxide 27 Anion Gap 5 BUN 15 Creatinine 0.77 Est Cr Clr Drug Dosing 89.7 Est GFR ( Amer) 103.6 Est GFR (Non-Af Amer) 89.4 BUN/Creatinine Ratio 19.5 Glucose 124 H Estimat Average Glucose 123 Hemoglobin A1c 5.9 H Calcium 8.9 PG Care Time/CCT Total # of Minutes Spent Total Time Spent with Patient: Total time spent is greater than 50% in coordination of care (as documented) at patient's floor/unit and/or counseling patient: Coding Level of Care Code 15332 SUB INP/OBS CARE 2/35MIN Diagnoses Symptomatic sinus bradycardia R00.1 Pre-syncope R55 Hypertension I10 Hyperlipidemia E78.5 Ascending aortic aneurysm I71.21 Scalp laceration S01.01XA First degree AV block I44.0 Prediabetes R73.03
[2024-06-22 06:47] LABS: Hematocrit (blood only) 37.8 % (42.0-52.0); Hemoglobin 13.3 g/dl (14.0-18.0); Mean Corpuscular Hemoglobin 31.8 pg (25.0-34.0); Mean Corpuscular Hgb Conc 35.2 g/dL (32.0-36.0); Mean Corpuscular Volume 90.4 fL (80.0-100.0); Mean Platelet Volume 11.7 fL (9.4-12.4); Platelet Count 175 K/uL (130-400); RDW Coefficient of Variation 12.2 % (11.5-14.5); RDW Standard Deviation 40.8 fL (36.4-46.3); Red Blood Count 4.18 M/uL (4.70-6.10); White Blood Count 5.49 K/ul (4.8-10.8)
[2024-06-22 07:11] LABS: INR 0.9 (0.9-1.1); Prothrombin Time 10.3 Seconds (9.0-12.0)
--- NOTE | 2024-06-22 08:01 | Pre Anesthesia Assessment ---
Date of Service June 22, 2024 Pre Sedation Assessment Vital Signs Temp Pulse Pulse Resp BP Pulse Ox O2 Del Method 06/22/24 07:35 36.9 C 41 L 18 139/68 94 Room Air 06/22/24 03:43 36.7 C 42 L 18 143/69 H 96 Room Air 06/22/24 00:10 36.7 C 45 L 18 119/65 95 Room Air 06/21/24 23:11 44 L 06/21/24 19:53 36.3 C L 47 L 18 137/73 96 Room Air 06/21/24 14:43 36.5 C 46 L 20 131/69 95 Room Air 06/21/24 14:24 43 L 06/21/24 11:00 36.9 C 45 L 20 143/68 H 96 Room Air Cardiovascular + bradycardic Respiratory + respiratory effort normal Pre-Sedation Airway Assessment Smoking Status: Never smoker Hx Sleep Apnea: No Hx Difficult Intubation: No Short, Thick Neck: No Thyromental Distance: > or= 3.5 Finger Breadths Oral Cavity: + WNL Mallampati Class: III ASA: ASA3 Procedure Planning Contraindications for Sedation: none Current Medications Reviewed: Yes Notes The planned sedation has been discussed with the patient. Informed Consent was obtained. I have identified the patient, determined the appropriateness of sedation and have assessed the patient immediately prior to the procedure. All medicine(s) and interventions are by my order.
[2024-06-22] MEDS: ceFAZolin 330 MG/ML 1 GM VIAL ONE (08:53)
[2024-06-22] MEDS: fentaNYL citrate PF 100 MCG/2 ML VIAL ONE (09:43)
[2024-06-22] MEDS: MIDAZOLAM HCL 1 MG/ML 2ML VIAL ONE (09:44)
[2024-06-22] MEDS ORDERED: oxyCODONE HCL IR 5 MG TAB (IMMEDIATE RELEASE) PO PRN (09:59)
--- NOTE | 2024-06-22 09:59 | Post Anesthesia Assessment ---
Date of Service June 22, 2024 Post Sedation Assessment Vital Signs Temp Pulse Pulse Resp BP Pulse Ox O2 Del Method 06/22/24 08:20 49 L 18 144/66 H 99 Room Air 06/22/24 08:16 42 L 06/22/24 07:35 36.9 C 41 L 18 139/68 94 Room Air 06/22/24 03:43 36.7 C 42 L 18 143/69 H 96 Room Air 06/22/24 00:10 36.7 C 45 L 18 119/65 95 Room Air 06/21/24 23:11 44 L 06/21/24 19:53 36.3 C L 47 L 18 137/73 96 Room Air 06/21/24 14:43 36.5 C 46 L 20 131/69 95 Room Air 06/21/24 14:24 43 L 06/21/24 11:00 36.9 C 45 L 20 143/68 H 96 Room Air Recovery Score Activity: Moves 4 extremities Respiration: Deep Breath/Cough Circulation: +/-20% PreAnes Value Consciousness: Fully Awake Oxygen Saturation: > 92% On Room Air Discharge Sedation Level of Care: Fast Track Phase II Post Sedation Plan On clinical assessment, the patient appears to have tolerated the sedation without complications. Patient is recovering as anticipated. Patient will continue to be monitored by nursing and may be discharged when sedation discharge criteria are met per below protocol. Upon Completions of procedure up to 15 minutes continue every 5 minute vital signs and the P.A.R. score; then discharge to a Phase I or Fast Track to Phase II per the following guidelines: * Discharge Patient to appropriate Phase II area if PAR is 8 or greater or return to pre- procedure baseline. The post - procedure orders will be as directed. * If PAR score is less than 8 or not return to pre-procedure baseline then patient will follow Phase I monitoring till PAR is reached for Phase II. The Phase I may be done in procedure room or may call to secure a Phase I area. * If naloxone or flumazenil are used for reversal, hold in Phase I for continued monitoring from when last reversal dose was given for a minimum of 60 minutes or longer pending the nurse and/or physician discretion of patient condition before discharge to Phase II. Please call the Sedation Physician to re-evaluate and complete post-note for discharge to Phase II area. Do NOT discharge from procedure sedation or Phase 1 until post- sedation evaluation note is complete by procedure /sedation MD Sedation Discharge Instructions to be given to the patient at discharge to home.
--- NOTE | 2024-06-22 09:59 | Electrophysiology Report ---
Date of Service June 22, 2024 Electrophysiology Procedure Electrophysiology Procedure Report Procedure performed: Implantation of dual-chamber permanent pacemaker with left bundle pacing lead Staff inside sales supervisor: Sergei Elam MD Indication: The patient is a 74-year-old gentleman who presented with symptomatic bradycardia due to sinus node dysfunction. He is felt to be a good candidate for permanent pacemaker due to symptomatic nonreversible SA node dysfunction. Dual-chamber device was selected is currently in sinus rhythm and wished to maintain AV synchrony. Procedure in detail: The patient was informed of the risks benefits and alternatives to the intended procedure and she wished to proceed. He was taken to the electrophysiology suite in a fasting state. A preoperative antibiotic had been administered. The patient was monitored electrocardiographically throughout today's procedure and conscious sedation was administered per protocol. The left upper pectoral area is prepped and draped in usual sterile fashion. This area was anesthetized using subcutaneous administration of a xylocaine solution. An incision was made at this site and carried down to the prepectoralis fascia using sharp dissection. Electrocautery was also employed for dissection as well as for hemostasis. A device pocket was fashioned tissues above the pectoralis muscle. Subsequent to this maneuver the left axillary vein was accessed using modified Seldinger technique. Sheath was placed over guidewire and used to facilitate passage of a guiding catheter for mapping of the interventricular septum. Once an appropriate location was identified a pacing lead was advanced into the interventricular septum until the appropriate electrophysiologic characteristics were obtained. At this point the guiding catheter was removed. The proximal portion lead was then sutured the prepectoralis fascia using nonabsorbable suture. Sheath was placed over the remaining guidewire and used to facilitate passage of a pacing lead to the right atrium under fluoroscopic guidance. Adequate sensing and threshold parameters were obtained prior to active fixation of this lead to the endocardial surface. The proximal portion leads were then sutured the prepectoral fascia using nonabsorbable suture. The device pocket was irrigated with antibiotic solution. The leads were then attached to the device. The device and leads were then placed in the pocket and pocket was closed in 3 layers of absorbable suture. Steri-Strips and sterile dressing were applied. The device was tested noninvasively prior to conclusion the procedure. The patient tolerated procedure well there no immediate complications. Equipment used: New pulse generator: Tests Superintendent [employer]. Model number: [id number] serial number [id number] Right atrial lead: Tests Superintendent [employer]. Model number: [id number] serial number [id number] Right ventricular lead: Tests Superintendent [employer]. Model number: [id number] serial number [id number] Measured data: Right atrial lead: P wave measured 1.5 mV. Pacing threshold was 1.25 V at 0.4 ms with a pacing impedance of 494 ohms Right ventricular lead: R waves measured 7.1 mV. Pacing threshold was 0.5 V at 0.4 ms with a pacing impedance of 798 ohms Impression: Successful implantation of dual-chamber permanent pacemaker with left bundle pacing lead [facility] Electrophysiology codes Pacing Procedure 1: Pacin Insert/Replace Pacer A & V PG Moderate Sedation Codes Moderate Sedation Codes Procedure 1: Sedation/Anesthesia: 44829 Mod Sedation by the same physician;Init15 Min Child Age 5 & Up Procedure 2: Sedation/Anesthesia: 94634 Mod Sedation by the same physician; Ea [id number] Minutes
[2024-06-22] MEDS: LIDOCAINE 1% LOCAL 20 ML VIAL ONE (13:10)
[2024-06-22] MEDS: WATER, STERILE FOR INJ 10 ML VIAL ONE (13:10)
[2024-06-22] MEDS: VANCOMYCIN HCL 1000MG/20ML VIAL ONE (13:10)
[2024-06-22] MEDS: BUPIVACAINE 0.25% PF 30 ML VIAL ONE (13:10)
[2024-06-22 13:53] VITALS: RESP 16; TEMP 98.1; O2SAT 98
--- NOTE | 2024-06-22 14:43 | XRay Report ---
XR chest 2V PA/lateral HISTORY: 74 years-old Male post pacemaker no lifting left arm status post placement of a left subcla vian pacer COMPARISON: 06/18/2024 TECHNIQUE: PA and lateral views of the chest FINDINGS: Status post placement of a dual-lead left subclavian pacer. Atherosclerosis of the aorta. No pneumoth orax, pleural effusion, airspace consolidation or pulmonary edema. Degenerative changes of the should ers and spine. Mild lumbar levoscoliosis. IMPRESSION: Status post placement of a dual lead left subclavian pacer. No postprocedural pneumothora x identified. ACT 112: Negative or not required by law. The above report was generated using voice recognition software. It may contain grammatical, syntax o r spelling errors. Electronically signed by: Carlos Guevara M.D. 06/22/2024 2:42 PM
[2024-06-22 15:09] VITALS: BP 143/73
--- NOTE | 2024-06-22 15:18 | Discharge Summary ---
Discharge Summary Date of Service June 22, 2024 Principal Dx & Hospital Course #1 = Principal Diagnosis (1) Symptomatic sinus bradycardia: In the last few weeks he has had exertional dizziness/lightheadedness/near- syncope several times and, on 1 occasion, had actual syncope leading to scalp/head lacerations x 2 (got up in the middle of the night at home and "blacked out"). Ongoing HRs in the 30s and low 40s on monitoring. Was dizzy, lightheaded, and weak when he was walking in the hallways on 06/20/24. Rates at that time were low 30s. TSH wnl. Lyme negative. Orthostatic BPs negative. CTA head/neck with intact circulation. Echo with preserved EF, normal LV wall motion, and no valvular disease. Appreciate Dr Elam's consult from [facility]. pacemaker insertion on Friday, 06/[address] Elam (2) Pre-syncope: see above (3) Hypertension: cont amlodipine and lisinopril (4) Hyperlipidemia: cont statin (5) Ascending aortic aneurysm: follows with Dr Micah Blair, [facility] cardiology for such aortic root wnl on echo this admission (6) Scalp laceration: x 2 repaired at outside urgent care healing well cont augmentin for prophylaxis - day #6 of 7 of such (7) First degree AV block: as seen on tele/EKG see #1 above (8) Prediabetes: a1c 5.9% c/w pre-DM patient aware of this diagnosis was told he was pre-diabetic years ago, and in fact his a1cs were >6% in the past lost 20+ pounds of weight last few years to help with the glucose issue f/u with PCP for such Plan Admission HPI Per Admitting Provider Santhosh is a 73-year-old male with past medical history of GERD, hyperlipidemia, hypertension, bradycardia, asthma, MDD, elevated PSA, ascending aortic dilation who presents with recurrent presyncope and bradycardia Santhosh seen at the bedside with his present. He reports he has a longstanding history of bradycardia without syncope, presyncope, or hypotension. He did have a 30-day monitor in the past for a single episode of suspected A- fib noted on [employer] Watch however 30-day monitor did not show any documented A- fib per patient. He reports that in the last month, and especially in the last 2 weeks has had progressive presyncope and lightheadedness which does not always correlate with standing up. His episodes have occurred while walking and exerting himself, and had 1 episode with standing. This past week he did get up at night to walk his dog briefly had some lightheadedness dizziness and then syncopized, falling into a window. Saw urgent care for this on 06/17, did have a tetanus shot updated and was placed on prophylactic Augmentin for 1 week. Lacerations were closed with Dermabond at that visit. She presented today for evaluation of continued presyncope He denies chest pain or chest pressure at any point. No fevers chills or sweats. No recent illnesses. No rashes Lyme is negative He does not take any beta-blockers or AV charles agents. He does have a trend on his Apple Watch which shows variability, and has noted high heart rate variability which has correlated with the symptoms although this does not necessarily report the rate at the same time. Overall his rate appears to have down trended and is often in the high 30s/low 40s. Discussed with patient's [facility] door fitter Dr. Blair. Unfortunately cannot get a event monitor this evening and going into the holiday weekend. Will admit the patient overnight to watch for any episodes symptomatic bradycardia or pauses that would necessitate a pacemaker. If no events are seen overnight patient feels well can be discharged tomorrow and will be set up with a follow-up appointment and an event monitor for this coming week. Discharge Plan Discharge Items Patient Disposition: Home - Self-Care Reason For Visit: PRESYNCOPE/SYNCOPE Discharge Diagnosis: symptomatic bradycardia Activity: Per Instructions section Activity Comment: No lifting left arm above shoulder or behind neck for 6 weeks Bathing: Keep incision dry Bathing Comment: keep wound dry and steri-strip intact until f/u Driving/Machine Use: Resume 1 day after discharge Non-emergency contact: Cloth Cutting Inspector Call non-emergency contact if: you have a fever, your wound has increased redness, your wound has increased drainage and your wound pain has increased Follow-up/Referrals: Sergei Elam MD [Physician] - Eliazar Ham [Primary Care Provider] - Diet: Heart Healthy Addtl Attending Provider Instructions: may remove outer bulky dressing in AM Pending Studies at Discharge: No Stand-Alone Forms: [employer], Smoking Cessation Medications and DC Order Prescriptions: New acetaminophen 325 mg Tablet 650 mg PO Q4H PRNQty: 0 0RF oxycodone 5 mg Tablet 5 mg PO Q4H PRN (Reason: pain) Qty: 10 0RF Continued aspirin [Adult Aspirin Regimen] 81 mg tablet,delayed release (DR/EC) 81 mg PO QAM amoxicillin-pot clavulanate 875-125 mg tablet 1 tab PO BID 5 Days Qty: 10 0RF multivitamin Tablet 1 tab PO QAM famotidine [Pepcid] 40 mg Tablet 40 mg PO BID amlodipine [Norvasc] 2.5 mg Tablet 5 mg PO QPM pantoprazole [Protonix] 20 mg Tablet,Delayed Release (Dr/Ec) 20 mg PO QAM lisinopril 40 mg Tablet 20 mg PO HS Rx Instructions: per pt, provider reduced from 40 mg to 20 mg for now rosuvastatin [Crestor] 20 mg Tablet 40 mg PO QPM ascorbic acid (vitamin C) [Vitamin C] 1,000 mg Tablet 1 g PO HS zinc 50 mg Tablet 50 mg PO QAM vitamin B complex Capsule 1 cap PO QAM cholecalciferol (vitamin D3) [Vitamin D3] 125 mcg (5,000 unit) Tablet 125 mcg PO QAM coQ10 (ubiquinol) 200 mg Capsule 200 mg PO QPM Discharge Orders: Discharge Order (Routine); Ordered 06/22/24 Ordered By: Tonja Morfin/Other Patient Handouts: Pacemaker Implant Dc Admission Data Admit Date/Time: 06/18/24 16:46 Attending Provider: Tonja Smith Admit Provider: Nestor Galvan Primary Care Provider: Eliazar Ham Other Providers: Nestor Galvan; Sergei Elam Other Interventions: Discharge Summary Assessment (RN) Last Done: 06/22/24 15:07 Hospital Stay Data Consultations 06/18/24 15:17 ED Decision to Admit Stat 06/19/24 13:03 Consult Cardiology Routine Procedures Performed Operation Date: 06/22/24 08:30 Actual Procedures p Pacer with A/V Leads (Dual)(Left) - Sergei Elam MD Diagnostic Imagining Performed 06/18/24 11:23 CT angio head w con Stat CT angio neck with con Stat CT head/brain wo con Stat 06/22/24 07:00 EP Lab Images for PACS ONCE Pending Results Patient Have Any Pending Studies at Discharge: No Discharge Instructions Given to Patient (Per Discharging Provider) may remove outer bulky dressing in AM Total Time Total Time Spent Total Time Spent (In Minutes): <30 Coding Level of Care Code 35505 IN/OBS DISCH 30 MIN/LESS Diagnoses Symptomatic sinus bradycardia R00.1 Pre-syncope R55 Hypertension I10 Hyperlipidemia E78.5 Ascending aortic aneurysm I71.21 Scalp laceration S01.01XA First degree AV block I44.0 Prediabetes R73.03
[2024-06-22 15:28] VITALS: PULSE 62
--- NOTE | 2024-06-22 18:03 | Electrocardiogram Report ---
Test Reason : Blood Pressure : */* mmHG Vent. Rate : 60 BPM Atrial Rate : 60 BPM P-R Int : 286 ms QRS Dur : 98 ms QT Int : 400 ms P-R-T Axes : -16 5 2 degrees QTcB Int : 400 ms Atrial-paced rhythm with prolonged AV conduction Abnormal ECG When compared with ECG of 18-Jun-2024 10:11, Electronic atrial pacemaker has replaced Sinus rhythm Vent. rate has increased by 20 bpm Confirmed by Sergei Elam ([id number]) on 06/22/2024 6:03:27 PM Referred By: REFERRED SELF Confirmed By: Sergei Elam
== END 2024-06-22 15:37 | disposition home or self-care (01) | DRG 244 ==
LOC: ED 09:58 → EDINP 16:46 → SUATTDRO 16:46 → INTOOBSV 16:46 → 2S 19:38